=== PATIENT | male | born 1955 | race Caucasian/White ===

== ENCOUNTER 2019-02-21 15:37 | Inpatient (IN) ==
[2019-02-21] MEDS ORDERED: 0.9 % Sodium Chloride 1,000 ML IVC ONE ×2 (15:50→17:26)
[2019-02-21] MEDS ORDERED: Ondansetron 4 MG/2 ML VIAL IVP ONE (15:50)
[2019-02-21] MEDS ORDERED: *HR* HYDROmorphone (PF) 1 MG/ML SYRINGE IVP ONE (16:15)
[2019-02-21] MEDS ORDERED: Piperacillin/Tazobactam 3.375 GM in Water for inj. (sterile) 20 ML IVP ONE (17:26)
[2019-02-21] MEDS ORDERED: *HR* Metoprolol 5 MG/5 ML VIAL IVP ONE (18:15)
[2019-02-21] MEDS ORDERED: Naloxone 0.4 MG/ML INJ IVP PRN (18:43)
[2019-02-21] MEDS ORDERED: D5% in Water 1,000 ML IVC PRN (19:33)
[2019-02-21] MEDS ORDERED: Dextrose Gel 15 GM/37.5 ML TUBE PO PRN ×2 (19:33)
[2019-02-21] MEDS ORDERED: *HR* Dextrose 50 % in Water (Syg) 50 ML SYRINGE IVP PRN (19:33)
[2019-02-21] MEDS ORDERED: 0.9 % Sodium Chloride 1,000 ML IVC SCH (21:45)
[2019-02-22] MEDS: MetroNIDAZOLE 500 MG/100 ML 500 MG/100 ML BAG IVPB SCH ×5 (00:08→23:58)
[2019-02-22] MEDS: Insulin LISPRO 300 UNITS/3 ML VIAL SQ SCH ×4 (00:09→17:40)
[2019-02-22] MEDS ORDERED: Perflutren Lipid Microsphere 1.3 ML in 0.9 % Sodium Chloride 8.7 ML IVP ONE (07:09)
[2019-02-22] MEDS: cefTRIAXone 1,000 MG in Water for inj. (sterile) 10 ML IVP SCH (09:33)
[2019-02-22 11:27] LABS: Basophils # 0.1 K/mcL (0.0-0.2); Basophils % 0.4 %; Eosinophils # 0.3 K/mcL (0.0-0.6); Eosinophils % 1.4 %; Hematocrit 38.6 % (37.5-50.1); Immature Granulocytes % 0.7 % (0-4); Lymphocytes # 1.1 K/mcL (0.6-4.6); Lymphocytes % 6.1 %; Mean Corpuscular HGB Conc 31.1 g/dL (31.6-35.5); Mean Corpuscular Hemoglobin 28.9 pg (28.0-33.3); Mean Platelet Volume 9.9 fL (9.4-12.4); Monocytes # 1.4 K/mcL (0.0-1.3); Platelet Count 204 K/mcL (140-400); Red Blood Count 4.15 M/mcL (4.19-5.50); Red Cell Distribution Width 14.5 % (11.5-14.5); Segmented Neutrophils % 83.4 %
[2019-02-22 11:33] LABS: INR 1.7; Prothrombin Time 19.3 Seconds (9.4-12.1)
[2019-02-22 11:48] LABS: Albumin 3.6 g/dL (3.5-5.7); Albumin/Globulin Ratio 1.1 (1.1-2.2); Calcium 8.3 mg/dL (8.6-10.3); Chol/HDL Ratio 4.2 (0-4.9); Globulin 3.3 g/dL (2.4-3.5); Magnesium 2.1 mg/dL (1.6-2.6); Potassium 4.3 mEq/L (3.5-5.1); Total Protein 6.9 g/dL (6.4-8.9)
[2019-02-22 12:00] LABS: Thyroid Stimulating Hormone 1.313 mcIU/mL (0.340-5.600)
[2019-02-22] MEDS ORDERED: Regadenoson 0.4 MG/5 ML SYRINGE IVP ONE (13:12)
[2019-02-22] MEDS: 0.9 % Sodium Chloride 1,000 ML IVC SCH (16:00)
[2019-02-23] MEDS: Insulin LISPRO 300 UNITS/3 ML VIAL SQ SCH ×3 (00:06→20:59)
[2019-02-23] MEDS: 0.9 % Sodium Chloride 1,000 ML IVC SCH ×2 (00:08→16:59)
[2019-02-23] MEDS: MetroNIDAZOLE 500 MG/100 ML 500 MG/100 ML BAG IVPB SCH ×2 (05:46→17:02)
[2019-02-23 06:40] LABS: Basophils # 0.1 K/mcL (0.0-0.2); Basophils % 0.4 %; Eosinophils # 0.5 K/mcL (0.0-0.6); Hemoglobin 12.5 g/dL (12.9-16.9); Immature Granulocytes % 0.6 % (0-4); Lymphocytes # 0.9 K/mcL (0.6-4.6); Lymphocytes % 5.7 %; Mean Corpuscular HGB Conc 32.1 g/dL (31.6-35.5); Mean Corpuscular Hemoglobin 29.9 pg (28.0-33.3); Mean Corpuscular Volume 93.3 fL (83.0-100.0); Mean Platelet Volume 9.5 fL (9.4-12.4); Monocytes # 1.1 K/mcL (0.0-1.3); Monocytes % 6.8 %; Neutrophils # 13.8 K/mcL (1.6-8.9); Platelet Count 217 K/mcL (140-400); Red Blood Count 4.18 M/mcL (4.19-5.50); Red Cell Distribution Width 14.4 % (11.5-14.5); Segmented Neutrophils % 83.5 %; White Blood Count 16.6 K/mcL (4.3-11.1)
[2019-02-23 06:49] LABS: INR 1.3; Prothrombin Time 15.2 Seconds (9.4-12.1)
[2019-02-23 07:00] LABS: Albumin 3.7 g/dL (3.5-5.7); Bilirubin,Total 0.8 mg/dL (0.3-1.0); Calcium 8.4 mg/dL (8.6-10.3); Globulin 3.8 g/dL (2.4-3.5); Potassium 4.2 mEq/L (3.5-5.1); Total Protein 7.5 g/dL (6.4-8.9)
[2019-02-23] MEDS ORDERED: *HR* HYDROcodone/Acet 5/325 mg TABLET PO PRN (07:33)
[2019-02-23] MEDS ORDERED: Lidocaine -MPF 4% 5 ML AMPUL ONE (07:38)
[2019-02-23] MEDS: cefTRIAXone 1,000 MG in Water for inj. (sterile) 10 ML IVP SCH (08:03)
[2019-02-23] MEDS ORDERED: *HR* Midazolam HCl 2 MG/2 ML VIAL ONE (09:11)
[2019-02-23] MEDS ORDERED: *HR* Propofol 200 MG/20 ML VIAL IVP ONE (09:11)
[2019-02-23] MEDS ORDERED: Dexamethasone 4 MG/ML VIAL ONE (09:11)
[2019-02-23] MEDS ORDERED: *HR* FentaNYL (PF) 100 MCG/2 ML VIAL ONE (09:11)
[2019-02-23] MEDS ORDERED: Lidocaine -MPF 2% 2 ML VIAL ONE (09:11)
[2019-02-23] MEDS ORDERED: *HR* Succinylcholine 200 MG/10 ML VIAL IVP ONE (09:11)
[2019-02-23] MEDS ORDERED: Ondansetron 4 MG/2 ML VIAL ONE (09:11)
[2019-02-23] MEDS ORDERED: *HR* Rocuronium Bromide 50 MG/5 ML VIAL ONE ×2 (09:12→10:16)
[2019-02-23] MEDS ORDERED: *HR* Phenylephrine 10 MG/ML VIAL ONE (10:18)
[2019-02-23] MEDS ORDERED: *HR* Vasopressin 20 UNIT/ML VIAL ONE (10:26)
[2019-02-23] MEDS: Morphine Sulfate 2 MG/ML SYRINGE IVP PRN ×5 (12:18→12:40)
[2019-02-23] MEDS ORDERED: Dextrose Gel 15 GM/37.5 ML TUBE PO PRN ×2 (12:57)
[2019-02-23] MEDS ORDERED: Naloxone 0.4 MG/ML INJ IVP PRN (12:57)
[2019-02-23] MEDS ORDERED: *HR* Dextrose 50 % in Water (Syg) 50 ML SYRINGE IVP PRN (12:57)
[2019-02-23] MEDS ORDERED: D5% in Water 1,000 ML IVC PRN ×2 (12:57→20:54)
[2019-02-23] MEDS ORDERED: Insulin LISPRO 300 UNITS/3 ML VIAL SQ SCH (18:00)
[2019-02-23] MEDS: *HR* OxyCODONE/APAP 5/325 TABLET PO PRN (21:09)
[2019-02-24] MEDS: 0.9 % Sodium Chloride 1,000 ML IVC SCH ×2 (00:05→18:10)
[2019-02-24] MEDS: MetroNIDAZOLE 500 MG/100 ML 500 MG/100 ML BAG IVPB SCH ×5 (00:06→20:20)
[2019-02-24 05:05] LABS: Basophils % 0.2 %; Hematocrit 39.1 % (37.5-50.1); Hemoglobin 12.2 g/dL (12.9-16.9); Immature Granulocytes % 1.7 % (0-4); Lymphocytes # 0.6 K/mcL (0.6-4.6); Lymphocytes % 3.4 %; Mean Corpuscular HGB Conc 31.2 g/dL (31.6-35.5); Mean Corpuscular Hemoglobin 29.2 pg (28.0-33.3); Mean Corpuscular Volume 93.5 fL (83.0-100.0); Mean Platelet Volume 9.6 fL (9.4-12.4); Monocytes # 0.8 K/mcL (0.0-1.3); Monocytes % 4.6 %; Platelet Count 282 K/mcL (140-400); Red Blood Count 4.18 M/mcL (4.19-5.50); Red Cell Distribution Width 14.6 % (11.5-14.5); Segmented Neutrophils % 90.1 %; White Blood Count 16.6 K/mcL (4.3-11.1)
[2019-02-24 05:19] LABS: Calcium 8.2 mg/dL (8.6-10.3)
[2019-02-24] MEDS: cefTRIAXone 1,000 MG in Water for inj. (sterile) 10 ML IVP SCH (08:35)
[2019-02-24] MEDS: Insulin LISPRO 300 UNITS/3 ML VIAL SQ SCH ×5 (09:00→20:23)
[2019-02-24] MEDS: Insulin DETEMIR 100 UNIT/ML X5UNITS SQ SCH (09:02)
[2019-02-24 11:31] LABS: Sodium, Urine 15.2 mEq/L
[2019-02-24] MEDS: *HR* OxyCODONE/APAP 5/325 TABLET PO PRN (20:29)
[2019-02-25] MEDS: 0.9 % Sodium Chloride 1,000 ML IVC SCH ×2 (03:55)
[2019-02-25] MEDS: MetroNIDAZOLE 500 MG/100 ML 500 MG/100 ML BAG IVPB SCH (03:55)
[2019-02-25 04:15] LABS: Basophils % 0.2 %; Eosinophils # 0.1 K/mcL (0.0-0.6); Eosinophils % 0.3 %; Hematocrit 36.1 % (37.5-50.1); Hemoglobin 11.3 g/dL (12.9-16.9); Immature Granulocytes % 2.5 % (0-4); Lymphocytes # 0.9 K/mcL (0.6-4.6); Lymphocytes % 5.9 %; Mean Corpuscular HGB Conc 31.3 g/dL (31.6-35.5); Mean Corpuscular Hemoglobin 29.3 pg (28.0-33.3); Mean Corpuscular Volume 93.5 fL (83.0-100.0); Mean Platelet Volume 9.5 fL (9.4-12.4); Monocytes % 6.3 %; Neutrophils # 12.8 K/mcL (1.6-8.9); Platelet Count 291 K/mcL (140-400); Red Blood Count 3.86 M/mcL (4.19-5.50); Red Cell Distribution Width 14.4 % (11.5-14.5); Segmented Neutrophils % 84.8 %; White Blood Count 15.1 K/mcL (4.3-11.1)
[2019-02-25 04:32] LABS: Potassium 4.5 mEq/L (3.5-5.1)
[2019-02-25] MEDS: cefTRIAXone 1,000 MG in Water for inj. (sterile) 10 ML IVP SCH (09:35)
[2019-02-25] MEDS: Insulin DETEMIR 100 UNIT/ML X5UNITS SQ SCH (09:39)
[2019-02-25] MEDS: Insulin LISPRO 300 UNITS/3 ML VIAL SQ SCH (09:40)
[2019-02-25 11:06] VITALS: BP 101/59
[2019-02-25] MEDS ORDERED: Leptospermum Honey Gel 44 ML TUBE TP SCH (11:35)
[2019-02-25] MEDS ORDERED: *HR* Rivaroxaban 15 MG TABLET PO SCH (17:00)
== END 2019-02-25 12:32 | disposition home or self-care (01) | DRG 853 ==
LOC: 3ANU 15:37 → EMEROOARM 15:37 → SUATTDRO 18:26 → 3ANU 19:41
PROVIDERS: ADMIT Internal Medicine; ATTEND Internal Medicine

== ENCOUNTER 2019-04-08 14:54 | Inpatient (IN) ==
[2019-04-08] MEDS ORDERED: Isovue-370 500 ML BOTTLE IVP ONE (17:01)
[2019-04-08] MEDS ORDERED: Piperacillin/Tazobactam 3.375 GM in Water for inj. (sterile) 20 ML IVP ONE (17:02)
[2019-04-08] MEDS ORDERED: 0.9 % Sodium Chloride 1,000 ML IVC ONE ×5 (17:03→21:05)
[2019-04-08] MEDS ORDERED: *HR* HYDROmorphone (PF) 1 MG/ML SYRINGE IVP ONE (17:04)
[2019-04-08] MEDS ORDERED: Ketorolac 15 MG/ML VIAL IVP ONE (17:04)
[2019-04-08 17:40] LABS: Basophils # 0.1 K/mcL (0.0-0.2); Basophils % 0.3 %; Eosinophils % 0.1 %; Hematocrit 38.6 % (37.5-50.1); Hemoglobin 12.7 g/dL (12.9-16.9); Immature Granulocytes % 1.6 % (0-4); Lymphocytes # 0.7 K/mcL (0.6-4.6); Lymphocytes % 3.1 %; Mean Corpuscular HGB Conc 32.9 g/dL (31.6-35.5); Mean Corpuscular Hemoglobin 29.1 pg (28.0-33.3); Mean Corpuscular Volume 88.5 fL (83.0-100.0); Mean Platelet Volume 10.1 fL (9.4-12.4); Monocytes # 1.1 K/mcL (0.0-1.3); Monocytes % 4.7 %; Neutrophils # 21.2 K/mcL (1.6-8.9); Platelet Count 274 K/mcL (140-400); Red Blood Count 4.36 M/mcL (4.19-5.50); Red Cell Distribution Width 15.9 % (11.5-14.5); Segmented Neutrophils % 90.2 %; White Blood Count 23.5 K/mcL (4.3-11.1)
[2019-04-08 17:41] LABS: INR 1.5; Prothrombin Time 17.5 Seconds (9.4-12.1)
[2019-04-08 17:44] LABS: Activated Partial Thrombo Time 31.1 Seconds (26.0-36.0)
[2019-04-08 18:00] LABS: Albumin 3.4 g/dL (3.5-5.7); Albumin/Globulin Ratio 0.8 (1.1-2.2); Bilirubin,Direct 0.3 mg/dL (0.0-0.2); Bilirubin,Indirect 0.6 mg/dL (0.0-1.0); Bilirubin,Total 0.9 mg/dL (0.3-1.0); Calcium 8.7 mg/dL (8.6-10.3); Globulin 4.2 g/dL (2.4-3.5); Magnesium 2.1 mg/dL (1.6-2.6); Phosphorous 2.6 mg/dL (2.7-4.5); Potassium 4.4 mEq/L (3.5-5.1); Total Protein 7.6 g/dL (6.4-8.9); Troponin I 0.03 ng/mL (< 0.04)
[2019-04-08] MEDS ORDERED: Ondansetron 4 MG/2 ML VIAL IVP ONE ×2 (18:00→20:30)
[2019-04-08 18:13] LABS: Thyroid Stimulating Hormone 1.138 mcIU/mL (0.340-5.600)
[2019-04-08] MEDS ORDERED: Clindamycin 900 MG/50 ML 900 MG/50 ML IV.SOLN IVPB ONE (18:57)
[2019-04-08 19:17] LABS: Bilirubin,Urine Negative (Negative); Blood,Urine Negative (Negative); Clarity,Urine Cloudy (Clear); Color,Urine Dark Yellow (Yellow); Glucose,Urine (UA) Normal (Normal); Ketones,Urine Negative (Negative); Leukocyte Esterase,Urine Negative (Negative); Nitrite,Urine Negative (Negative); Protein,Urine 100 mg/dL (Neg-Trace); Specific Gravity,Urine 1.027 (1.010-1.025); Urobilinogen,Urine Normal (Normal)
[2019-04-08 19:18] LABS: RBC,Urine 0-3 per hpf (0-3); Squamous Epithelial Cell,Urine Many per lpf (None-Few)
[2019-04-08 19:34] LABS: Amorphous Sediment,Urine Few (Few); Bacteria,Urine Few per hpf (None-Few)
[2019-04-08 19:35] LABS: Hyaline Casts,Urine Few per lpf (None-Few)
[2019-04-08] MEDS ORDERED: *HR* HYDROmorphone (PF) 1 MG/ML SYRINGE IVP PRN (20:30)
[2019-04-08] MEDS ORDERED: *HR* OxyCODONE Immed Rel 5 MG TABLET PO PRN (20:30)
[2019-04-08] MEDS ORDERED: *HR* Promethazine 25 MG/ML VIAL IVP PRN (20:30)
[2019-04-08] MEDS ORDERED: *HR* Propofol 200 MG/20 ML VIAL IVP ONE (20:47)
[2019-04-08] MEDS ORDERED: *HR* FentaNYL (PF) 100 MCG/2 ML VIAL ONE (20:47)
[2019-04-08] MEDS ORDERED: Dexamethasone 4 MG/ML VIAL ONE (20:50)
[2019-04-08] MEDS ORDERED: Lidocaine -MPF 2% 2 ML VIAL ONE (20:50)
[2019-04-08] MEDS ORDERED: *HR* Succinylcholine 200 MG/10 ML VIAL IVP ONE (20:50)
[2019-04-08] MEDS ORDERED: Ondansetron 4 MG/2 ML VIAL ONE (20:50)
[2019-04-08] MEDS ORDERED: *HR* Metoprolol 5 MG/5 ML VIAL IVP ONE (21:44)
[2019-04-08] MEDS ORDERED: *HR* PHENYLEPHRINE 1,000 MCG/10 ML SYRINGE IVP ONE (21:56)
[2019-04-08] MEDS ORDERED: *HR* Rocuronium Bromide 50 MG/5 ML VIAL ONE (23:10)
[2019-04-08] MEDS ORDERED: *HR* OxyCODONE/APAP 5/325 TABLET PO PRN (23:29)
[2019-04-09] MEDS: Acetaminophen IV 1,000 MG/100 ML INFUS..BTL IVPB SCH ×5 (00:19→23:44)
[2019-04-09] MEDS: Clindamycin 600 MG/50 ML 600 MG/50 ML IV.SOLN IVPB SCH ×2 (00:19→08:13)
[2019-04-09 01:09] LABS: Basophils % 0.1 %; Hematocrit 31.3 % (37.5-50.1); Hemoglobin 10.2 g/dL (12.9-16.9); Lymphocytes # 0.4 K/mcL (0.6-4.6); Mean Corpuscular HGB Conc 32.6 g/dL (31.6-35.5); Mean Corpuscular Hemoglobin 29.5 pg (28.0-33.3); Mean Corpuscular Volume 90.5 fL (83.0-100.0); Mean Platelet Volume 10.1 fL (9.4-12.4); Monocytes # 1.3 K/mcL (0.0-1.3); Monocytes % 6.1 %; Neutrophils # 18.8 K/mcL (1.6-8.9); Platelet Count 202 K/mcL (140-400); Red Blood Count 3.46 M/mcL (4.19-5.50); Red Cell Distribution Width 16.1 % (11.5-14.5); Segmented Neutrophils % 89.8 %
[2019-04-09 01:24] LABS: Calcium 7.4 mg/dL (8.6-10.3); Potassium 4.8 mEq/L (3.5-5.1)
[2019-04-09] MEDS ORDERED: 0.9 % Sodium Chloride 1,000 ML IVC ONE (02:15)
[2019-04-09] MEDS ORDERED: 0.9 % Sodium Chloride 1,000 ML ONE (02:29)
[2019-04-09] MEDS ORDERED: Calcium Gluconate 1gm/50mL 1 GM/50 ML BAG IVPB ONE (03:17)
[2019-04-09] MEDS ORDERED: Cefepime HCl 1,000 MG in 0.9 % Sodium Chloride Mini Bag 100 ML IVPB SCH (06:00)
[2019-04-09] MEDS: *HR* Heparin 5,000 UNIT/ML VIAL SQ SCH ×3 (06:01→19:59)
[2019-04-09] MEDS ORDERED: MetroNIDAZOLE 500 MG/100 ML 500 MG/100 ML BAG IVPB SCH ×2 (08:00→10:00)
[2019-04-09] MEDS ORDERED: carvediloL 6.25 MG TABLET PO SCH (08:00)
[2019-04-09] MEDS: Insulin LISPRO 300 UNITS/3 ML VIAL SQ SCH ×3 (08:12→17:45)
[2019-04-09] MEDS ORDERED: Dextrose Gel 15 GM/37.5 ML TUBE PO PRN ×2 (09:52)
[2019-04-09] MEDS ORDERED: D5% in Water 1,000 ML IVC PRN (09:52)
[2019-04-09] MEDS ORDERED: *HR* Dextrose 50 % in Water (Syg) 50 ML SYRINGE IVP PRN (09:52)
[2019-04-09] MEDS: MetroNIDAZOLE 500 MG/100 ML 500 MG/100 ML BAG IVPB SCH ×3 (11:08→19:59)
[2019-04-09] MEDS: Gentamicin Oint 15 GM TUBE TP SCH (13:42)
[2019-04-09] MEDS: Desitin (Zinc Oxide) 56 GM TUBE TP SCH (13:42)
[2019-04-09] MEDS ORDERED: 0.9 % Sodium Chloride 1,000 ML IVC SCH (15:45)
[2019-04-09] MEDS: Clindamycin 900 MG/50 ML 900 MG/50 ML IV.SOLN IVPB SCH ×2 (17:43→23:44)
[2019-04-09] MEDS: Cefepime HCl 2,000 MG in Water for inj. (sterile) 20 ML IVP SCH (17:44)
[2019-04-09] MEDS ORDERED: Cefepime HCl 1,000 MG in Water for inj. (sterile) 20 ML IVP SCH (18:00)
[2019-04-09 19:04] LABS: Basophils % 0.2 %; Eosinophils % 0.1 %; Hematocrit 29.9 % (37.5-50.1); Hemoglobin 9.7 g/dL (12.9-16.9); Immature Granulocytes % 1.6 % (0-4); Lymphocytes # 0.8 K/mcL (0.6-4.6); Mean Corpuscular HGB Conc 32.4 g/dL (31.6-35.5); Mean Corpuscular Hemoglobin 29.3 pg (28.0-33.3); Mean Corpuscular Volume 90.3 fL (83.0-100.0); Mean Platelet Volume 10.5 fL (9.4-12.4); Monocytes % 5.2 %; Neutrophils # 17.7 K/mcL (1.6-8.9); Platelet Count 219 K/mcL (140-400); Red Blood Count 3.31 M/mcL (4.19-5.50); Red Cell Distribution Width 16.1 % (11.5-14.5); Segmented Neutrophils % 88.9 %; White Blood Count 19.9 K/mcL (4.3-11.1)
[2019-04-09 19:09] LABS: INR 1.4; Prothrombin Time 16.1 Seconds (9.4-12.1)
[2019-04-09 19:12] LABS: Activated Partial Thrombo Time 28.2 Seconds (26.0-36.0)
[2019-04-09] MEDS ORDERED: Insulin DETEMIR 100 UNIT/ML X5UNITS SQ SCH (21:00)
[2019-04-10 03:53] LABS: Basophils % 0.2 %; Eosinophils % 0.2 %; Hematocrit 28.2 % (37.5-50.1); Immature Granulocytes % 1.3 % (0-4); Lymphocytes # 0.7 K/mcL (0.6-4.6); Mean Corpuscular HGB Conc 31.9 g/dL (31.6-35.5); Mean Corpuscular Hemoglobin 29.5 pg (28.0-33.3); Mean Corpuscular Volume 92.5 fL (83.0-100.0); Mean Platelet Volume 10.3 fL (9.4-12.4); Monocytes # 0.9 K/mcL (0.0-1.3); Monocytes % 4.8 %; Neutrophils # 16.2 K/mcL (1.6-8.9); Platelet Count 209 K/mcL (140-400); Red Blood Count 3.05 M/mcL (4.19-5.50); Segmented Neutrophils % 89.5 %; White Blood Count 18.1 K/mcL (4.3-11.1)
[2019-04-10] MEDS: Cefepime HCl 2,000 MG in Water for inj. (sterile) 20 ML IVP SCH ×2 (04:10→17:02)
[2019-04-10] MEDS: MetroNIDAZOLE 500 MG/100 ML 500 MG/100 ML BAG IVPB SCH ×4 (04:11→21:30)
[2019-04-10 04:17] LABS: Calcium 7.7 mg/dL (8.6-10.3); Potassium 4.5 mEq/L (3.5-5.1)
[2019-04-10 04:18] LABS: Albumin 2.6 g/dL (3.5-5.7); Albumin/Globulin Ratio 0.8 (1.1-2.2); Bilirubin,Total 0.5 mg/dL (0.3-1.0); Calcium 7.6 mg/dL (8.6-10.3); Globulin 3.4 g/dL (2.4-3.5); Magnesium 2.1 mg/dL (1.6-2.6); Potassium 4.6 mEq/L (3.5-5.1)
[2019-04-10] MEDS: Acetaminophen IV 1,000 MG/100 ML INFUS..BTL IVPB SCH (05:39)
[2019-04-10] MEDS: *HR* Heparin 5,000 UNIT/ML VIAL SQ SCH ×3 (05:39→21:29)
[2019-04-10] MEDS: Psyllium 1 PACKET POWD.PACK PO SCH ×4 (05:40→22:12)
[2019-04-10] MEDS: Desitin (Zinc Oxide) 56 GM TUBE TP SCH (09:16)
[2019-04-10] MEDS: Insulin LISPRO 300 UNITS/3 ML VIAL SQ SCH ×3 (09:16→19:47)
[2019-04-10] MEDS: Gentamicin Oint 15 GM TUBE TP SCH (09:16)
[2019-04-10] MEDS: Clindamycin 900 MG/50 ML 900 MG/50 ML IV.SOLN IVPB SCH ×3 (09:16→23:38)
[2019-04-10] MEDS ORDERED: Acetaminophen 325 MG TABLET PO PRN ×2 (11:23→20:09)
[2019-04-10] MEDS ORDERED: Dextrose Gel 15 GM/37.5 ML TUBE PO PRN ×4 (20:09)
[2019-04-10] MEDS ORDERED: *HR* Dextrose 50 % in Water (Syg) 50 ML SYRINGE IVP PRN (20:09)
[2019-04-10] MEDS ORDERED: *HR* OxyCODONE/APAP 5/325 TABLET PO PRN (20:09)
[2019-04-10] MEDS ORDERED: D5% in Water 1,000 ML IVC PRN (20:09)
[2019-04-10 21:03] LABS: Estimated Average Glucose 171 mg/dl
[2019-04-10] MEDS: Insulin DETEMIR 100 UNIT/ML X5UNITS SQ SCH (21:30)
[2019-04-11] MEDS: MetroNIDAZOLE 500 MG/100 ML 500 MG/100 ML BAG IVPB SCH ×3 (04:24→10:41)
[2019-04-11] MEDS: Cefepime HCl 2,000 MG in Water for inj. (sterile) 20 ML IVP SCH ×2 (04:24→07:20)
[2019-04-11 04:28] LABS: Basophils # 0.1 K/mcL (0.0-0.2); Basophils % 0.2 %; Eosinophils # 0.3 K/mcL (0.0-0.6); Eosinophils % 1.4 %; Hemoglobin 10.4 g/dL (12.9-16.9); Immature Granulocytes % 0.8 % (0-4); Lymphocytes # 0.9 K/mcL (0.6-4.6); Lymphocytes % 3.7 %; Mean Corpuscular HGB Conc 32.5 g/dL (31.6-35.5); Mean Corpuscular Hemoglobin 29.1 pg (28.0-33.3); Mean Corpuscular Volume 89.6 fL (83.0-100.0); Mean Platelet Volume 10.1 fL (9.4-12.4); Monocytes % 4.2 %; Neutrophils # 20.5 K/mcL (1.6-8.9); Nucleated Red Blood Cells 0.1 /100 WBC (0); Platelet Count 307 K/mcL (140-400); Red Blood Count 3.57 M/mcL (4.19-5.50); Red Cell Distribution Width 16.1 % (11.5-14.5); Segmented Neutrophils % 89.7 %; White Blood Count 22.9 K/mcL (4.3-11.1)
[2019-04-11 04:46] LABS: Calcium 7.9 mg/dL (8.6-10.3); Potassium 4.2 mEq/L (3.5-5.1)
[2019-04-11] MEDS: *HR* Heparin 5,000 UNIT/ML VIAL SQ SCH (06:08)
[2019-04-11] MEDS: Clindamycin 900 MG/50 ML 900 MG/50 ML IV.SOLN IVPB SCH ×2 (07:32)
[2019-04-11] MEDS: Desitin (Zinc Oxide) 56 GM TUBE TP SCH (08:15)
[2019-04-11] MEDS: Gentamicin Oint 15 GM TUBE TP SCH (08:15)
[2019-04-11] MEDS: Insulin LISPRO 300 UNITS/3 ML VIAL SQ SCH ×3 (08:16→17:07)
[2019-04-11] MEDS ORDERED: *HR* Metoprolol 5 MG/5 ML VIAL IVP ONE (09:00)
[2019-04-11] MEDS: Psyllium 1 PACKET POWD.PACK PO SCH ×3 (10:44→21:01)
[2019-04-11 11:27] LABS: Acinetobacter baumannii by PCR Not Detected (Not Detect); Candida albicans by PCR Not Detected (Not Detect); Candida glabrata by PCR Not Detected (Not Detect); Candida krusei by PCR Not Detected (Not Detect); Candida parapsilosis by PCR Not Detected (Not Detect); Candida tropicalis by PCR Not Detected (Not Detect); Enterobacter cloacae Cmplx PCR Not Detected (Not Detect); Enterobacteriaceae by PCR Not Detected (Not Detect); Enterococcus by PCR Not Detected (Not Detect); Escherichia coli by PCR Not Detected (Not Detect); Klebsiella oxytoca by PCR Not Detected (Not Detect); Klebsiella pneumoniae by PCR Not Detected (Not Detect); Proteus by PCR Not Detected (Not Detect); Pseudomonas aeruginosa by PCR Not Detected (Not Detect); Serratia marcescens by PCR Not Detected (Not Detect); Staphylococcus aureus by PCR Not Detected (Not Detect); Staphylococcus by PCR Not Detected (Not Detect); Streptococcus agalactiae(B)PCR Not Detected (Not Detect); Streptococcus by PCR Not Detected (Not Detect); Streptococcus pneumoniae PCR Not Detected (Not Detect); Streptococcus pyogenes (A) PCR Not Detected (Not Detect)
[2019-04-11] MEDS ORDERED: Ondansetron 4 MG/2 ML VIAL IVP PRN (11:56)
[2019-04-11] MEDS ORDERED: Vancomycin 0 MG in 0.9 % Sodium Chloride 250 ML IVPB SCH (12:00)
[2019-04-11] MEDS: Piperacillin/Tazobactam 3.375 GM in 0.9 % Sodium Chloride Mini Bag 100 ML IVPB SCH ×3 (12:03→23:59)
[2019-04-11] MEDS: Cholestyramine 4 GM POWD.PACK PO SCH (12:42)
[2019-04-11] MEDS: *HR* Rivaroxaban 15 MG TABLET PO SCH (17:00)
[2019-04-11] MEDS: Insulin DETEMIR 100 UNIT/ML X5UNITS SQ SCH (21:00)
[2019-04-11] MEDS: Famotidine 20 MG TABLET PO SCH (21:03)
[2019-04-12 03:32] LABS: Basophils # 0.1 K/mcL (0.0-0.2); Basophils % 0.4 %; Eosinophils # 0.6 K/mcL (0.0-0.6); Eosinophils % 2.7 %; Hematocrit 29.2 % (37.5-50.1); Hemoglobin 9.3 g/dL (12.9-16.9); Immature Granulocytes % 1.3 % (0-4); Lymphocytes # 1.2 K/mcL (0.6-4.6); Lymphocytes % 5.2 %; Mean Corpuscular HGB Conc 31.8 g/dL (31.6-35.5); Mean Corpuscular Hemoglobin 29.2 pg (28.0-33.3); Mean Corpuscular Volume 91.5 fL (83.0-100.0); Mean Platelet Volume 9.6 fL (9.4-12.4); Monocytes # 1.2 K/mcL (0.0-1.3); Monocytes % 5.3 %; Platelet Count 281 K/mcL (140-400); Red Blood Count 3.19 M/mcL (4.19-5.50); Red Cell Distribution Width 16.1 % (11.5-14.5); Segmented Neutrophils % 85.1 %; White Blood Count 22.3 K/mcL (4.3-11.1)
[2019-04-12 03:50] LABS: Calcium 8.1 mg/dL (8.6-10.3); Potassium 4.3 mEq/L (3.5-5.1)
[2019-04-12] MEDS: Cholestyramine 4 GM POWD.PACK PO SCH (06:45)
[2019-04-12] MEDS: Piperacillin/Tazobactam 3.375 GM in 0.9 % Sodium Chloride Mini Bag 100 ML IVPB SCH ×3 (07:54→23:17)
[2019-04-12] MEDS: Famotidine 20 MG TABLET PO SCH ×2 (07:56→16:22)
[2019-04-12] MEDS: Psyllium 1 PACKET POWD.PACK PO SCH ×3 (07:58→20:33)
[2019-04-12] MEDS: Insulin LISPRO 300 UNITS/3 ML VIAL SQ SCH ×3 (10:11→16:21)
[2019-04-12] MEDS: Gentamicin Oint 15 GM TUBE TP SCH (12:28)
[2019-04-12] MEDS: Desitin (Zinc Oxide) 56 GM TUBE TP SCH (12:28)
[2019-04-12] MEDS: *HR* Rivaroxaban 15 MG TABLET PO SCH (16:22)
[2019-04-12] MEDS ORDERED: Insulin DETEMIR 100 UNIT/ML X5UNITS SQ SCH (21:00)
[2019-04-13 02:38] LABS: Basophils # 0.1 K/mcL (0.0-0.2); Basophils % 0.5 %; Eosinophils # 0.7 K/mcL (0.0-0.6); Eosinophils % 3.2 %; Hematocrit 28.6 % (37.5-50.1); Hemoglobin 9.4 g/dL (12.9-16.9); Immature Granulocytes % 3.7 % (0-4); Lymphocytes # 1.1 K/mcL (0.6-4.6); Lymphocytes % 5.4 %; Mean Corpuscular HGB Conc 32.9 g/dL (31.6-35.5); Mean Corpuscular Hemoglobin 29.3 pg (28.0-33.3); Mean Corpuscular Volume 89.1 fL (83.0-100.0); Mean Platelet Volume 9.4 fL (9.4-12.4); Monocytes # 1.3 K/mcL (0.0-1.3); Monocytes % 6.2 %; Neutrophils # 16.9 K/mcL (1.6-8.9); Platelet Count 309 K/mcL (140-400); Red Blood Count 3.21 M/mcL (4.19-5.50); Red Cell Distribution Width 16.4 % (11.5-14.5); White Blood Count 20.9 K/mcL (4.3-11.1)
[2019-04-13 02:57] LABS: Calcium 8.2 mg/dL (8.6-10.3); Potassium 4.2 mEq/L (3.5-5.1)
[2019-04-13] MEDS: Cholestyramine 4 GM POWD.PACK PO SCH (06:12)
[2019-04-13] MEDS: Insulin LISPRO 300 UNITS/3 ML VIAL SQ SCH ×4 (07:40→18:04)
[2019-04-13] MEDS: Psyllium 1 PACKET POWD.PACK PO SCH ×2 (07:59→15:35)
[2019-04-13] MEDS: Piperacillin/Tazobactam 3.375 GM in 0.9 % Sodium Chloride Mini Bag 100 ML IVPB SCH ×3 (08:01→23:26)
[2019-04-13] MEDS: Famotidine 20 MG TABLET PO SCH ×2 (08:01→16:13)
[2019-04-13] MEDS: Gentamicin Oint 15 GM TUBE TP SCH (08:16)
[2019-04-13] MEDS: Desitin (Zinc Oxide) 56 GM TUBE TP SCH (08:16)
[2019-04-13] MEDS: *HR* Rivaroxaban 15 MG TABLET PO SCH (16:13)
[2019-04-13] MEDS ORDERED: *HR* Dextrose 50 % in Water (Syg) 50 ML SYRINGE IVP PRN (16:19)
[2019-04-13] MEDS ORDERED: D5% in Water 1,000 ML IVC PRN (16:19)
[2019-04-13] MEDS ORDERED: Dextrose Gel 15 GM/37.5 ML TUBE PO PRN ×2 (16:19)
[2019-04-13] MEDS ORDERED: Vancomycin 1 EACH in 0.9 % Sodium Chloride 250 ML IVPB SCH (17:00)
[2019-04-13] MEDS: Eucerin Cream 57 GM TUBE TP PRN (18:39)
[2019-04-13] MEDS: Lactobacillus 1 EACH CAP.SPRINK PO SCH (20:24)
[2019-04-13] MEDS ORDERED: Insulin DETEMIR 100 UNIT/ML X5UNITS SQ SCH (21:00)
[2019-04-14 02:50] LABS: Basophils % 0.8 %; Eosinophils % 5.5 %; Hematocrit 28.6 % (37.5-50.1); Hemoglobin 9.4 g/dL (12.9-16.9); Immature Granulocytes % 6.8 % (0-4); Lymphocytes # 1.1 K/mcL (0.6-4.6); Lymphocytes % 5.9 %; Mean Corpuscular HGB Conc 32.9 g/dL (31.6-35.5); Mean Corpuscular Hemoglobin 29.3 pg (28.0-33.3); Mean Corpuscular Volume 89.1 fL (83.0-100.0); Mean Platelet Volume 9.2 fL (9.4-12.4); Monocytes # 1.4 K/mcL (0.0-1.3); Monocytes % 7.7 %; Neutrophils # 13.4 K/mcL (1.6-8.9); Platelet Count 336 K/mcL (140-400); Red Blood Count 3.21 M/mcL (4.19-5.50); Red Cell Distribution Width 16.7 % (11.5-14.5); Segmented Neutrophils % 73.3 %; White Blood Count 18.3 K/mcL (4.3-11.1)
[2019-04-14 03:10] LABS: % Iron Saturation 15 % (20-55); Calcium 8.2 mg/dL (8.6-10.3); Iron 31 mcg/dL (65-175); Potassium 4.2 mEq/L (3.5-5.1); Transferrin 152 mg/dL (203-362)
[2019-04-14 03:27] LABS: Ferritin 167 ng/mL (20-250)
[2019-04-14 03:33] LABS: Folate 13.7 ng/mL (3.0-16.0)
[2019-04-14 03:55] LABS: Basophils # 0.2 K/mcL (0.0-0.2)
[2019-04-14 04:41] LABS: Reactive Lymphocytes Present (Not Present)
[2019-04-14 04:42] LABS: Platelet Estimate Normal (Normal)
[2019-04-14] MEDS: Cholestyramine 4 GM POWD.PACK PO SCH (06:03)
[2019-04-14] MEDS: Insulin LISPRO 300 UNITS/3 ML VIAL SQ SCH ×3 (08:05→17:51)
[2019-04-14] MEDS: Piperacillin/Tazobactam 3.375 GM in 0.9 % Sodium Chloride Mini Bag 100 ML IVPB SCH ×3 (08:08→23:49)
[2019-04-14] MEDS: Lactobacillus 1 EACH CAP.SPRINK PO SCH ×2 (08:10→20:17)
[2019-04-14] MEDS: Famotidine 20 MG TABLET PO SCH ×2 (08:11→15:50)
[2019-04-14] MEDS: Gentamicin Oint 15 GM TUBE TP SCH (08:21)
[2019-04-14] MEDS: Desitin (Zinc Oxide) 56 GM TUBE TP SCH (08:22)
[2019-04-14] MEDS: Eucerin Cream 57 GM TUBE TP PRN (08:22)
[2019-04-14] MEDS: *HR* Rivaroxaban 15 MG TABLET PO SCH (17:58)
[2019-04-14] MEDS ORDERED: Insulin DETEMIR 100 UNIT/ML X5UNITS SQ SCH (21:00)
[2019-04-15 04:04] LABS: Hematocrit 30.5 % (37.5-50.1); Hemoglobin 9.9 g/dL (12.9-16.9); Mean Corpuscular HGB Conc 32.5 g/dL (31.6-35.5); Mean Corpuscular Hemoglobin 28.9 pg (28.0-33.3); Mean Corpuscular Volume 88.9 fL (83.0-100.0); Mean Platelet Volume 8.8 fL (9.4-12.4); Platelet Count 348 K/mcL (140-400); Red Blood Count 3.43 M/mcL (4.19-5.50); Red Cell Distribution Width 16.9 % (11.5-14.5); White Blood Count 18.9 K/mcL (4.3-11.1)
[2019-04-15 04:23] LABS: Calcium 8.4 mg/dL (8.6-10.3); Potassium 4.5 mEq/L (3.5-5.1)
[2019-04-15 04:56] LABS: Eosinophils # 0.4 K/mcL (0.0-0.6); Lymphocytes # 1.1 K/mcL (0.6-4.6); Neutrophils # 17.4 K/mcL (1.6-8.9)
[2019-04-15 04:57] LABS: Anisocytosis 1+ (Not Present); Hypochromasia Present (Not Present); Platelet Estimate Normal (Normal)
[2019-04-15] MEDS ORDERED: Aminoglycoside Consult 1 EACH MC ONE (08:27)
[2019-04-15] MEDS: Lactobacillus 1 EACH CAP.SPRINK PO SCH ×2 (09:19→20:30)
[2019-04-15] MEDS: Famotidine 20 MG TABLET PO SCH ×2 (09:19→19:04)
[2019-04-15] MEDS: Insulin LISPRO 300 UNITS/3 ML VIAL SQ SCH (09:20)
[2019-04-15] MEDS: Piperacillin/Tazobactam 3.375 GM in 0.9 % Sodium Chloride Mini Bag 100 ML IVPB SCH (09:20)
[2019-04-15] MEDS: Desitin (Zinc Oxide) 56 GM TUBE TP SCH (09:21)
[2019-04-15] MEDS: Gentamicin Oint 15 GM TUBE TP SCH (09:21)
[2019-04-15] MEDS ORDERED: metroNIDAZOLE 500 MG TABLET PO SCH (15:00)
[2019-04-15] MEDS ORDERED: Piperacillin/Tazobactam 3.375 GM in 0.9 % Sodium Chloride Mini Bag 100 ML IVPB SCH (16:00)
[2019-04-15] MEDS: *HR* Rivaroxaban 15 MG TABLET PO SCH (19:04)
[2019-04-15] MEDS: Metoprolol XL (24 HR) Succ 50 MG TAB.ER.24H PO SCH (20:30)
[2019-04-15] MEDS ORDERED: Insulin DETEMIR 100 UNIT/ML X5UNITS SQ SCH (21:00)
[2019-04-16] MEDS: Piperacillin/Tazobactam 3.375 GM in 0.9 % Sodium Chloride Mini Bag 100 ML IVPB SCH ×4 (02:50→15:42)
[2019-04-16 03:40] LABS: Basophils % 0.5 %; Lymphocytes % 3.8 %; Nucleated Red Blood Cells 0.1 /100 WBC (0)
[2019-04-16 03:41] LABS: Basophils # 0.1 K/mcL (0.0-0.2); Eosinophils % 3.2 %; Hematocrit 30.8 % (37.5-50.1); Immature Granulocytes % 4.4 % (0-4); Mean Corpuscular HGB Conc 32.5 g/dL (31.6-35.5); Mean Corpuscular Hemoglobin 28.8 pg (28.0-33.3); Mean Corpuscular Volume 88.8 fL (83.0-100.0); Mean Platelet Volume 9.1 fL (9.4-12.4); Monocytes % 3.9 %; Neutrophils # 22.3 K/mcL (1.6-8.9); Platelet Count 386 K/mcL (140-400); Red Blood Count 3.47 M/mcL (4.19-5.50); Red Cell Distribution Width 17.2 % (11.5-14.5); Segmented Neutrophils % 84.2 %; White Blood Count 26.5 K/mcL (4.3-11.1)
[2019-04-16 03:45] LABS: Eosinophils # 0.9 K/mcL (0.0-0.6)
[2019-04-16 03:58] LABS: Calcium 8.4 mg/dL (8.6-10.3); Magnesium 2.3 mg/dL (1.6-2.6); Phosphorous 3.8 mg/dL (2.7-4.5); Potassium 4.6 mEq/L (3.5-5.1)
[2019-04-16 04:28] LABS: Platelet Estimate Normal (Normal)
[2019-04-16] MEDS ORDERED: cefTRIAXone 2,000 MG in 0.9 % Sodium Chloride Mini Bag 100 ML IVPB SCH (09:00)
[2019-04-16] MEDS: Metoprolol XL (24 HR) Succ 50 MG TAB.ER.24H PO SCH (09:41)
[2019-04-16] MEDS: Gentamicin Oint 15 GM TUBE TP SCH (09:41)
[2019-04-16] MEDS: Desitin (Zinc Oxide) 56 GM TUBE TP SCH (09:41)
[2019-04-16] MEDS: Lactobacillus 1 EACH CAP.SPRINK PO SCH (09:41)
[2019-04-16] MEDS: Famotidine 20 MG TABLET PO SCH ×2 (09:41→18:48)
[2019-04-16] MEDS: Cholestyramine 4 GM POWD.PACK PO SCH ×2 (15:42→16:50)
[2019-04-16 15:49] LABS: Red Cell Distribution Width 17.2 % (11.5-14.5)
[2019-04-16 15:50] LABS: Hematocrit 32.2 % (37.5-50.1); Mean Corpuscular HGB Conc 31.1 g/dL (31.6-35.5); Mean Corpuscular Volume 93.3 fL (83.0-100.0); Mean Platelet Volume 8.8 fL (9.4-12.4); Platelet Count 344 K/mcL (140-400); Red Blood Count 3.45 M/mcL (4.19-5.50); White Blood Count 27.5 K/mcL (4.3-11.1)
[2019-04-16 16:00] LABS: Heparin anti-factor XA UFH 0.15 IU/mL (0.30-0.70); INR 1.5; Prothrombin Time 17.3 Seconds (9.4-12.1)
[2019-04-16] MEDS ORDERED: MetroNIDAZOLE 500 MG/100 ML 500 MG/100 ML BAG IVPB SCH (16:00)
[2019-04-16] MEDS ORDERED: Insulin LISPRO 300 UNITS/3 ML VIAL SQ SCH ×2 (16:30→21:00)
[2019-04-16] MEDS ORDERED: *HR* FentaNYL (PF) 100 MCG/2 ML VIAL ONE (17:49)
[2019-04-16] MEDS ORDERED: Lidocaine -MPF 2% 2 ML VIAL ONE (17:50)
[2019-04-16] MEDS ORDERED: *HR* Propofol 200 MG/20 ML VIAL IVP ONE (17:50)
[2019-04-16] MEDS ORDERED: *HR* Succinylcholine 200 MG/10 ML VIAL IVP ONE (17:50)
[2019-04-16] MEDS ORDERED: Lidocaine -MPF 4% 5 ML AMPUL ONE (17:50)
[2019-04-16] MEDS ORDERED: Ondansetron 4 MG/2 ML VIAL ONE (17:50)
[2019-04-16] MEDS ORDERED: *HR* Heparin 5,000 UNIT/ML VIAL IVP PRN ×4 (18:00→21:33)
[2019-04-16] MEDS ORDERED: Heparin 25,000 UNIT/250 ML D5W 25,000 UNIT/250 ML IV.SOLN IVC SCH ×2 (18:00→21:33)
[2019-04-16] MEDS ORDERED: *HR* HYDROmorphone (PF) 1 MG/ML SYRINGE IVP PRN (18:35)
[2019-04-16] MEDS ORDERED: *HR* PHENYLEPHRINE 1,000 MCG/10 ML SYRINGE IVP ONE (18:58)
[2019-04-16 19:55] LABS: Adenovirus F 40/41 PCR Not detected (Not detect); Astrovirus PCR Not detected (Not detect); C.difficile Toxin A/B Gene PCR Not detected (Not detect); Campylobacter by PCR Not detected (Not detect); Cryptosporidium by PCR Not detected (Not detect); Cyclospora cayetanensis PCR Not detected (Not detect); E. coli O157 by PCR Not detected (Not detect); Entamoeba histolytica PCR Not detected (Not detect); Enteroaggregative E.coli(EAEC) Not detected (Not detect); Enteropathogenic E.coli(EPEC) Not detected (Not detect); Enterotoxigenic E.coli (ETEC) Not detected (Not detect); Giardia lamblia PCR Not detected (Not detect); Norovirus GI/GII PCR Not detected (Not detect); Plesiomonas shigelloides PCR Not detected (Not detect); Rotavirus A PCR Not detected (Not detect); Salmonella PCR Not detected (Not detect); Sapovirus PCR Not detected (Not detect); Shig/EnteroinvasiveE coli EIEC Not detected (Not detect); Shigalike tox-prod E coli STEC Not detected (Not detect); Vibrio PCR Not detected (Not detect); Vibrio cholerae PCR Not detected (Not detect); Yersinia enterocolitica PCR Not detected (Not detect)
[2019-04-16] MEDS ORDERED: D5% in Water 1,000 ML IVC PRN (21:33)
[2019-04-16] MEDS ORDERED: Eucerin Cream 57 GM TUBE TP PRN (21:33)
[2019-04-16] MEDS ORDERED: *HR* Dextrose 50 % in Water (Syg) 50 ML SYRINGE IVP PRN (21:33)
[2019-04-16] MEDS ORDERED: Ondansetron 4 MG/2 ML VIAL IVP PRN (21:33)
[2019-04-16] MEDS ORDERED: Dextrose Gel 15 GM/37.5 ML TUBE PO PRN ×2 (21:33)
[2019-04-16] MEDS ORDERED: DAPTOmycin 500 MG in 0.9 % Sodium Chloride 100 ML IVPB SCH (23:00)
[2019-04-17] MEDS ORDERED: MetroNIDAZOLE 500 MG/100 ML 500 MG/100 ML BAG IVPB SCH
[2019-04-17] MEDS: Acetaminophen 325 MG TABLET PO SCH ×4 (00:35→18:27)
[2019-04-17] MEDS: Piperacillin/Tazobactam 3.375 GM in 0.9 % Sodium Chloride Mini Bag 100 ML IVPB SCH ×3 (02:33→18:28)
[2019-04-17 06:45] LABS: Basophils % 0.3 %; Monocytes % 1.6 %
[2019-04-17 06:47] LABS: Basophils # 0.1 K/mcL (0.0-0.2); Eosinophils % 0.1 %; Hemoglobin 9.6 g/dL (12.9-16.9); Immature Granulocytes % 3.8 % (0-4); Lymphocytes # 0.8 K/mcL (0.6-4.6); Lymphocytes % 2.8 %; Mean Corpuscular Hemoglobin 28.4 pg (28.0-33.3); Mean Corpuscular Volume 94.7 fL (83.0-100.0); Monocytes # 0.4 K/mcL (0.0-1.3); Platelet Count 336 K/mcL (140-400); Red Blood Count 3.38 M/mcL (4.19-5.50); Red Cell Distribution Width 17.5 % (11.5-14.5); Segmented Neutrophils % 91.4 %; White Blood Count 27.4 K/mcL (4.3-11.1)
[2019-04-17 07:03] LABS: Calcium 8.6 mg/dL (8.6-10.3); Potassium 5.2 mEq/L (3.5-5.1)
[2019-04-17] MEDS: Insulin LISPRO 300 UNITS/3 ML VIAL SQ SCH ×3 (08:50→16:53)
[2019-04-17] MEDS: Metoprolol XL (24 HR) Succ 50 MG TAB.ER.24H PO SCH (09:08)
[2019-04-17] MEDS: Lactobacillus 1 EACH CAP.SPRINK PO SCH ×2 (09:08→21:43)
[2019-04-17] MEDS: Famotidine 20 MG TABLET PO SCH ×2 (09:08→16:46)
[2019-04-17] MEDS: Cholestyramine 4 GM POWD.PACK PO SCH ×3 (09:08→16:47)
[2019-04-17] MEDS: Gentamicin Oint 15 GM TUBE TP SCH (09:10)
[2019-04-17] MEDS: Desitin (Zinc Oxide) 56 GM TUBE TP SCH (09:11)
[2019-04-17 09:33] LABS: Magnesium 2.4 mg/dL (1.6-2.6)
[2019-04-17] MEDS: Heparin 25,000 UNIT/250 ML D5W 25,000 UNIT/250 ML IV.SOLN IVC SCH (16:47)
[2019-04-17 16:57] LABS: Mean Corpuscular Hemoglobin 28.9 pg (28.0-33.3); Mean Platelet Volume 8.7 fL (9.4-12.4)
[2019-04-17 16:59] LABS: Hematocrit 31.5 % (37.5-50.1); Hemoglobin 9.7 g/dL (12.9-16.9); Mean Corpuscular HGB Conc 30.8 g/dL (31.6-35.5); Mean Corpuscular Volume 93.8 fL (83.0-100.0); Platelet Count 335 K/mcL (140-400); Red Blood Count 3.36 M/mcL (4.19-5.50); Red Cell Distribution Width 17.5 % (11.5-14.5)
[2019-04-17 17:04] LABS: INR 1.3; Prothrombin Time 14.4 Seconds (9.4-12.1)
[2019-04-17 17:04] LABS: White Blood Count 31.2 K/mcL (4.3-11.1)
[2019-04-17] MEDS ORDERED: Insulin LISPRO 300 UNITS/3 ML VIAL SQ SCH (21:00)
[2019-04-18] MEDS ORDERED: DAPTOmycin 500 MG in 0.9 % Sodium Chloride 100 ML IVPB SCH
[2019-04-18] MEDS: Acetaminophen 325 MG TABLET PO SCH ×3 (00:41→11:29)
[2019-04-18] MEDS: Piperacillin/Tazobactam 3.375 GM in 0.9 % Sodium Chloride Mini Bag 100 ML IVPB SCH ×2 (03:07→11:29)
[2019-04-18] MEDS ORDERED: Artificial Tears SOLN 15 ML BOTTLE LEFT EYE SCH (04:00)
[2019-04-18] MEDS: Nystatin SUSP 5 ML UD.LIQ PO SCH ×3 (05:02→14:53)
[2019-04-18 05:21] LABS: Basophils % 0.4 %
[2019-04-18 05:23] LABS: Basophils # 0.1 K/mcL (0.0-0.2); Eosinophils # 0.5 K/mcL (0.0-0.6); Eosinophils % 1.6 %; Hematocrit 32.4 % (37.5-50.1); Immature Granulocytes % 3.2 % (0-4); Lymphocytes % 3.7 %; Mean Corpuscular HGB Conc 30.9 g/dL (31.6-35.5); Mean Corpuscular Hemoglobin 29.2 pg (28.0-33.3); Mean Corpuscular Volume 94.7 fL (83.0-100.0); Monocytes % 3.1 %; Neutrophils # 29.5 K/mcL (1.6-8.9); Nucleated Red Blood Cells 0.1 /100 WBC (0); Platelet Count 349 K/mcL (140-400); Red Blood Count 3.42 M/mcL (4.19-5.50); Red Cell Distribution Width 17.7 % (11.5-14.5)
[2019-04-18 05:32] LABS: Lymphocytes # 1.2 K/mcL (0.6-4.6); White Blood Count 33.5 K/mcL (4.3-11.1)
[2019-04-18 05:42] LABS: Calcium 8.7 mg/dL (8.6-10.3); Magnesium 2.2 mg/dL (1.6-2.6); Potassium 4.6 mEq/L (3.5-5.1)
[2019-04-18] MEDS: Heparin 25,000 UNIT/250 ML D5W 25,000 UNIT/250 ML IV.SOLN IVC SCH (06:47)
[2019-04-18] MEDS: Insulin LISPRO 300 UNITS/3 ML VIAL SQ SCH ×2 (08:50→12:49)
[2019-04-18] MEDS: Lactobacillus 1 EACH CAP.SPRINK PO SCH (08:53)
[2019-04-18] MEDS: Cholestyramine 4 GM POWD.PACK PO SCH (08:53)
[2019-04-18] MEDS: Metoprolol XL (24 HR) Succ 50 MG TAB.ER.24H PO SCH (08:53)
[2019-04-18] MEDS: Famotidine 20 MG TABLET PO SCH (08:53)
[2019-04-18] MEDS: Gentamicin Oint 15 GM TUBE TP SCH (10:43)
[2019-04-18] MEDS: Desitin (Zinc Oxide) 56 GM TUBE TP SCH (10:43)
[2019-04-18 15:36] VITALS: BP 110/66
== END 2019-04-18 17:56 | disposition critical access hospital (66) | DRG 853 ==
LOC: 2ANU 14:54 → EMEROOARM 14:54 → 2ANU 21:34 → ICNU 04-09 04:25 → SUATTDRO 04-09 13:08 → 2NNU 04-10 20:05 → 3ANU 04-12 15:49 → 2NNU 04-12 16:05 → 3ANU 04-12 18:47
PROVIDERS: ADMIT Internal Medicine; ATTEND Pharmacist

== ENCOUNTER 2019-05-10 13:03 | Observation (INO) ==
[2019-05-10] MEDS ORDERED: 0.9 % Sodium Chloride 1,000 ML ONE (13:30)
[2019-05-10] MEDS ORDERED: 0.9 % Sodium Chloride 1,000 ML IVC ONE (13:37)
[2019-05-10] MEDS ORDERED: Isovue-370 500 ML BOTTLE IVP ONE (13:55)
[2019-05-10] MEDS ORDERED: WATER FOR INJ IR STA (14:00)
[2019-05-10] MEDS ORDERED: TRANEXAMIC ACID IR STA (14:00)
[2019-05-10] MEDS ORDERED: WATER FOR INJ NS STA (14:13)
[2019-05-10] MEDS ORDERED: TRANEXAMIC ACID NS STA (14:13)
[2019-05-10 14:38] LABS: Basophils # 0.1 K/mcL (0.0-0.2); Basophils % 0.8 %; Eosinophils # 0.5 K/mcL (0.0-0.6); Eosinophils % 5.3 %; Hematocrit 26.3 % (37.5-50.1); Hemoglobin 8.2 g/dL (12.9-16.9); Immature Granulocytes % 0.8 % (0-4); Lymphocytes # 1.6 K/mcL (0.6-4.6); Lymphocytes % 15.6 %; Mean Corpuscular HGB Conc 31.2 g/dL (31.6-35.5); Mean Corpuscular Volume 92.9 fL (83.0-100.0); Mean Platelet Volume 9.1 fL (9.4-12.4); Monocytes # 0.9 K/mcL (0.0-1.3); Monocytes % 8.9 %; Platelet Count 197 K/mcL (140-400); Red Blood Count 2.83 M/mcL (4.19-5.50); Red Cell Distribution Width 20.2 % (11.5-14.5); Segmented Neutrophils % 68.6 %; White Blood Count 10.2 K/mcL (4.3-11.1)
[2019-05-10 14:45] LABS: INR 1.4; Prothrombin Time 15.9 Seconds (9.4-12.1)
[2019-05-10 14:54] LABS: Platelet Estimate Normal (Normal)
[2019-05-10 14:57] LABS: Calcium 7.4 mg/dL (8.6-10.3); Potassium 4.5 mEq/L (3.5-5.1)
[2019-05-10] MEDS ORDERED: *HR* FentaNYL (PF) 100 MCG/2 ML VIAL IVP ONE (15:08)
[2019-05-10 17:31] LABS: Hematocrit 24.8 % (37.5-50.1); Hemoglobin 7.7 g/dL (12.9-16.9)
[2019-05-10] MEDS ORDERED: Eucerin Cream 57 GM TUBE TP PRN (17:35)
[2019-05-10] MEDS ORDERED: Naloxone 0.4 MG/ML INJ IVP PRN (17:37)
[2019-05-10] MEDS ORDERED: *HR* FentaNYL (PF) 100 MCG/2 ML VIAL IVP PRN (19:17)
[2019-05-10] MEDS ORDERED: 0.9 % Sodium Chloride 500 ML ONE (20:07)
[2019-05-10] MEDS ORDERED: Insulin LISPRO 300 UNITS/3 ML VIAL SQ SCH (21:00)
[2019-05-11 00:42] LABS: Basophils # 0.1 K/mcL (0.0-0.2); Basophils % 0.9 %; Eosinophils # 0.5 K/mcL (0.0-0.6); Eosinophils % 5.2 %; Immature Granulocytes % 1.1 % (0-4); Immature Platelets 1.7 % (1.1-6.1); Lymphocytes # 1.8 K/mcL (0.6-4.6); Lymphocytes % 17.5 %; Mean Corpuscular HGB Conc 31.7 g/dL (31.6-35.5); Mean Corpuscular Hemoglobin 29.1 pg (28.0-33.3); Mean Corpuscular Volume 91.7 fL (83.0-100.0); Mean Platelet Volume 9.3 fL (9.4-12.4); Monocytes % 9.1 %; Neutrophils # 6.9 K/mcL (1.6-8.9); Platelet Count 184 K/mcL (140-400); Red Blood Count 3.27 M/mcL (4.19-5.50); Red Cell Distribution Width 20.4 % (11.5-14.5); Segmented Neutrophils % 66.2 %; White Blood Count 10.4 K/mcL (4.3-11.1)
[2019-05-11 00:45] LABS: Hemoglobin 9.5 g/dL (12.9-16.9)
[2019-05-11 00:54] LABS: Calcium 7.3 mg/dL (8.6-10.3); Potassium 4.5 mEq/L (3.5-5.1)
[2019-05-11 01:17] LABS: Hypochromasia Present (Not Present)
[2019-05-11 01:18] LABS: Platelet Estimate Normal (Normal)
[2019-05-11] MEDS: Metoprolol XL (24 HR) Succ 50 MG TAB.ER.24H PO SCH (08:28)
[2019-05-11] MEDS: Famotidine 20 MG TABLET PO SCH ×2 (08:28→16:45)
[2019-05-11] MEDS: Insulin LISPRO 300 UNITS/3 ML VIAL SQ SCH ×3 (08:36→17:28)
[2019-05-11] MEDS: Erythromycin OPTH Oint BOTH EYES SCH (09:17)
[2019-05-11 11:04] LABS: Hematocrit 26.3 % (37.5-50.1); Hemoglobin 8.4 g/dL (12.9-16.9)
[2019-05-11] MEDS ORDERED: Dextrose Gel 15 GM/37.5 ML TUBE PO PRN ×2 (16:02)
[2019-05-11] MEDS ORDERED: *HR* Dextrose 50 % in Water (Syg) 50 ML SYRINGE IVP PRN (16:02)
[2019-05-11] MEDS ORDERED: D5% in Water 1,000 ML IVC PRN (16:02)
[2019-05-11 16:30] LABS: Hematocrit 25.3 % (37.5-50.1); Hemoglobin 8.2 g/dL (12.9-16.9)
[2019-05-12] MEDS: *HR* OxyCODONE/APAP 5/325 TABLET PO PRN ×2 (01:37→09:28)
[2019-05-12] MEDS: Insulin LISPRO 300 UNITS/3 ML VIAL SQ SCH ×3 (08:07→17:04)
[2019-05-12] MEDS: Metoprolol XL (24 HR) Succ 50 MG TAB.ER.24H PO SCH (08:19)
[2019-05-12] MEDS: Famotidine 20 MG TABLET PO SCH ×2 (08:20→16:17)
[2019-05-12] MEDS: Erythromycin OPTH Oint BOTH EYES SCH (08:20)
[2019-05-12 09:11] LABS: Hematocrit 26.8 % (37.5-50.1); Hemoglobin 8.2 g/dL (12.9-16.9); Mean Corpuscular HGB Conc 30.6 g/dL (31.6-35.5); Mean Corpuscular Hemoglobin 29.2 pg (28.0-33.3); Mean Corpuscular Volume 95.4 fL (83.0-100.0); Mean Platelet Volume 9.1 fL (9.4-12.4); Platelet Count 162 K/mcL (140-400); Red Blood Count 2.81 M/mcL (4.19-5.50); Red Cell Distribution Width 20.8 % (11.5-14.5); White Blood Count 10.5 K/mcL (4.3-11.1)
[2019-05-12 09:29] LABS: Calcium 7.4 mg/dL (8.6-10.3); Magnesium 1.7 mg/dL (1.6-2.6); Phosphorous 2.5 mg/dL (2.7-4.5); Potassium 4.3 mEq/L (3.5-5.1)
[2019-05-13 05:08] LABS: Basophils # 0.1 K/mcL (0.0-0.2); Basophils % 0.7 %; Eosinophils # 0.9 K/mcL (0.0-0.6); Eosinophils % 7.9 %; Hematocrit 26.6 % (37.5-50.1); Hemoglobin 8.3 g/dL (12.9-16.9); Immature Granulocytes % 1.1 % (0-4); Lymphocytes % 17.3 %; Mean Corpuscular HGB Conc 31.2 g/dL (31.6-35.5); Mean Corpuscular Hemoglobin 29.1 pg (28.0-33.3); Mean Corpuscular Volume 93.3 fL (83.0-100.0); Mean Platelet Volume 9.1 fL (9.4-12.4); Monocytes % 8.8 %; Platelet Count 175 K/mcL (140-400); Red Blood Count 2.85 M/mcL (4.19-5.50); Red Cell Distribution Width 20.5 % (11.5-14.5); Segmented Neutrophils % 64.2 %; White Blood Count 11.3 K/mcL (4.3-11.1)
[2019-05-13 05:11] LABS: Neutrophils # 7.3 K/mcL (1.6-8.9)
[2019-05-13 05:29] LABS: Calcium 7.5 mg/dL (8.6-10.3); Magnesium 1.7 mg/dL (1.6-2.6); Phosphorous 2.6 mg/dL (2.7-4.5); Potassium 4.4 mEq/L (3.5-5.1)
[2019-05-13 05:34] LABS: Hypochromasia Present (Not Present); Platelet Estimate Normal (Normal)
[2019-05-13] MEDS: Metoprolol XL (24 HR) Succ 50 MG TAB.ER.24H PO SCH (08:08)
[2019-05-13] MEDS: Famotidine 20 MG TABLET PO SCH ×2 (08:08→17:47)
[2019-05-13] MEDS: D5% in 0.9% NACL 1,000 ML IVC SCH ×2 (08:09→17:15)
[2019-05-13] MEDS: Insulin LISPRO 300 UNITS/3 ML VIAL SQ SCH ×3 (08:10→17:50)
[2019-05-13] MEDS: *HR* OxyCODONE/APAP 5/325 TABLET PO PRN ×2 (08:17→15:38)
[2019-05-13] MEDS: Erythromycin OPTH Oint BOTH EYES SCH (08:18)
[2019-05-14 06:49] VITALS: BP 120/72
[2019-05-14] MEDS: Insulin LISPRO 300 UNITS/3 ML VIAL SQ SCH ×3 (07:54→17:02)
[2019-05-14] MEDS: Famotidine 20 MG TABLET PO SCH ×2 (10:37→17:22)
[2019-05-14] MEDS: Metoprolol XL (24 HR) Succ 50 MG TAB.ER.24H PO SCH (10:37)
[2019-05-14] MEDS: Erythromycin OPTH Oint BOTH EYES SCH (10:38)
[2019-05-14] MEDS: *HR* OxyCODONE/APAP 5/325 TABLET PO PRN (11:54)
[2019-05-14] MEDS ORDERED: Ondansetron 4 MG/2 ML VIAL IVP PRN (12:08)
== END 2019-05-14 18:51 | disposition home health service (06) ==
LOC: EMEROOARM 13:03 → 3BNU 13:03 → SUATTDRO 17:39 → 2NNU 17:45 → 3ANU 05-12 20:35
PROVIDERS: ADMIT Internal Medicine; ATTEND Family Medicine

== ENCOUNTER 2019-05-14 20:07 | Inpatient (IN) ==
[2019-05-14] MEDS ORDERED: Isovue-370 500 ML BOTTLE IVP ONE (20:50)
[2019-05-14 20:56] LABS: Bilirubin,Urine Negative (Negative); Blood,Urine Trace (Negative); Clarity,Urine Cloudy (Clear); Color,Urine Yellow (Yellow); Glucose,Urine (UA) Normal (Normal); Ketones,Urine Negative (Negative); Leukocyte Esterase,Urine Large (Negative); Nitrite,Urine Negative (Negative); PH,Urine 6.5 pH Units (5.0-8.0); Protein,Urine 100 mg/dL (Neg-Trace); Specific Gravity,Urine 1.017 (1.010-1.025); Urobilinogen,Urine Normal (Normal)
[2019-05-14 20:58] LABS: Bacteria,Urine None Seen per hpf (None-Few); Hyaline Casts,Urine Few per lpf (None-Few); RBC,Urine 0-3 per hpf (0-3); Squamous Epithelial Cell,Urine Moderate per lpf (None-Few); WBC,Urine TNTC per hpf (0-3)
[2019-05-14] MEDS ORDERED: 0.9 % Sodium Chloride 500 ML IVC ONE ×2 (21:06→23:05)
[2019-05-14 21:09] LABS: Basophils # 0.1 K/mcL (0.0-0.2); Basophils % 0.8 %; Eosinophils # 0.4 K/mcL (0.0-0.6); Eosinophils % 2.7 %; Hematocrit 30.4 % (37.5-50.1); Hemoglobin 9.1 g/dL (12.9-16.9); Immature Granulocytes % 1.2 % (0-4); Lymphocytes # 1.7 K/mcL (0.6-4.6); Lymphocytes % 12.7 %; Mean Corpuscular HGB Conc 29.9 g/dL (31.6-35.5); Mean Corpuscular Hemoglobin 28.7 pg (28.0-33.3); Mean Corpuscular Volume 95.9 fL (83.0-100.0); Mean Platelet Volume 9.4 fL (9.4-12.4); Monocytes # 1.2 K/mcL (0.0-1.3); Monocytes % 8.8 %; Neutrophils # 9.7 K/mcL (1.6-8.9); Platelet Count 216 K/mcL (140-400); Red Blood Count 3.17 M/mcL (4.19-5.50); Red Cell Distribution Width 20.7 % (11.5-14.5); Segmented Neutrophils % 73.8 %; White Blood Count 13.1 K/mcL (4.3-11.1)
[2019-05-14 21:33] LABS: Calcium 7.8 mg/dL (8.6-10.3); Potassium 4.8 mEq/L (3.5-5.1); Troponin I 0.03 ng/mL (< 0.04)
[2019-05-14] MEDS ORDERED: *HR* Heparin 5,000 UNIT/ML VIAL IVP ONE (21:44)
[2019-05-14] MEDS ORDERED: *HR* Heparin 5,000 UNIT/ML VIAL IVP PRN ×2 (21:44)
[2019-05-14] MEDS ORDERED: cefTRIAXone 1,000 MG in Water for inj. (sterile) 10 ML IVP ONE (21:45)
[2019-05-14 22:24] LABS: Hematocrit 27.5 % (37.5-50.1); Hemoglobin 8.8 g/dL (12.9-16.9); Mean Corpuscular Hemoglobin 29.6 pg (28.0-33.3); Mean Corpuscular Volume 92.6 fL (83.0-100.0); Platelet Count 197 K/mcL (140-400); Red Blood Count 2.97 M/mcL (4.19-5.50); Red Cell Distribution Width 20.8 % (11.5-14.5); White Blood Count 13.1 K/mcL (4.3-11.1)
[2019-05-14 22:36] LABS: INR 1.6; Prothrombin Time 18.4 Seconds (9.4-12.1)
[2019-05-14] MEDS ORDERED: Naloxone 0.4 MG/ML INJ IVP PRN (23:35)
[2019-05-15] MEDS: Heparin 25,000 UNIT/250 ML D5W 25,000 UNIT/250 ML IV.SOLN IVC SCH ×2 (01:03→13:38)
[2019-05-15] MEDS ORDERED: D5% in Water 1,000 ML IVC PRN (01:21)
[2019-05-15] MEDS ORDERED: *HR* Dextrose 50 % in Water (Syg) 50 ML SYRINGE IVP PRN (01:21)
[2019-05-15] MEDS ORDERED: Dextrose Gel 15 GM/37.5 ML TUBE PO PRN ×2 (01:21)
[2019-05-15] MEDS ORDERED: 0.9 % Sodium Chloride 1,000 ML IVC SCH (02:15)
[2019-05-15] MEDS: Insulin LISPRO 300 UNITS/3 ML VIAL SQ SCH ×3 (08:05→17:47)
[2019-05-15 08:26] LABS: Basophils # 0.1 K/mcL (0.0-0.2); Basophils % 0.5 %; Eosinophils # 0.5 K/mcL (0.0-0.6); Eosinophils % 3.6 %; Hematocrit 24.6 % (37.5-50.1); Hemoglobin 7.9 g/dL (12.9-16.9); Immature Granulocytes % 1.1 % (0-4); Lymphocytes # 2.1 K/mcL (0.6-4.6); Lymphocytes % 16.6 %; Mean Corpuscular HGB Conc 32.1 g/dL (31.6-35.5); Mean Corpuscular Hemoglobin 29.2 pg (28.0-33.3); Mean Corpuscular Volume 90.8 fL (83.0-100.0); Mean Platelet Volume 9.2 fL (9.4-12.4); Monocytes % 7.7 %; Neutrophils # 9.1 K/mcL (1.6-8.9); Platelet Count 195 K/mcL (140-400); Red Blood Count 2.71 M/mcL (4.19-5.50); Red Cell Distribution Width 20.9 % (11.5-14.5); Segmented Neutrophils % 70.5 %; White Blood Count 12.9 K/mcL (4.3-11.1)
[2019-05-15] MEDS ORDERED: *HR* OxyCODONE/APAP 5/325 TABLET PO PRN (08:32)
[2019-05-15 08:47] LABS: Albumin/Globulin Ratio 0.6 (1.1-2.2); Bilirubin,Total 1.2 mg/dL (0.3-1.0); Calcium 7.3 mg/dL (8.6-10.3); Globulin 3.3 g/dL (2.4-3.5); Magnesium 1.8 mg/dL (1.6-2.6); Phosphorous 3.3 mg/dL (2.7-4.5); Potassium 4.5 mEq/L (3.5-5.1); Total Protein 5.3 g/dL (6.4-8.9)
[2019-05-15] MEDS: Metoprolol XL (24 HR) Succ 50 MG TAB.ER.24H PO SCH (10:29)
[2019-05-15] MEDS: Erythromycin OPTH Oint BOTH EYES SCH (10:29)
[2019-05-15] MEDS: Lactobacillus 1 EACH CAP.SPRINK PO SCH ×2 (10:30→20:12)
[2019-05-15] MEDS: Eucerin Cream 57 GM TUBE TP PRN (10:30)
[2019-05-15] MEDS: Cholestyramine 4 GM POWD.PACK PO SCH ×2 (10:30→20:11)
[2019-05-15] MEDS: Lidocaine Jelly 6ml 1 APPL/6 ML JEL.PF.APP TP SCH (17:04)
[2019-05-15] MEDS: Famotidine 20 MG TABLET PO SCH (17:59)
[2019-05-15] MEDS: *HR* Heparin 5,000 UNIT/ML VIAL SQ SCH (17:59)
[2019-05-15] MEDS: cefTRIAXone 1,000 MG in Water for inj. (sterile) 10 ML IVP SCH (23:29)
[2019-05-16 03:23] LABS: Basophils # 0.1 K/mcL (0.0-0.2); Basophils % 0.7 %; Eosinophils # 0.4 K/mcL (0.0-0.6); Eosinophils % 4.3 %; Hematocrit 25.5 % (37.5-50.1); Hemoglobin 7.9 g/dL (12.9-16.9); Immature Granulocytes % 1.1 % (0-4); Lymphocytes # 1.5 K/mcL (0.6-4.6); Lymphocytes % 14.7 %; Mean Corpuscular Hemoglobin 28.9 pg (28.0-33.3); Mean Corpuscular Volume 93.4 fL (83.0-100.0); Mean Platelet Volume 9.1 fL (9.4-12.4); Monocytes # 0.7 K/mcL (0.0-1.3); Monocytes % 7.2 %; Neutrophils # 7.4 K/mcL (1.6-8.9); Platelet Count 184 K/mcL (140-400); Red Blood Count 2.73 M/mcL (4.19-5.50); Red Cell Distribution Width 20.9 % (11.5-14.5); White Blood Count 10.3 K/mcL (4.3-11.1)
[2019-05-16 03:42] LABS: Albumin 2.1 g/dL (3.5-5.7); Albumin/Globulin Ratio 0.6 (1.1-2.2); Bilirubin,Total 1.4 mg/dL (0.3-1.0); Calcium 7.4 mg/dL (8.6-10.3); Globulin 3.3 g/dL (2.4-3.5); Magnesium 1.9 mg/dL (1.6-2.6); Potassium 4.2 mEq/L (3.5-5.1); Total Protein 5.4 g/dL (6.4-8.9)
[2019-05-16 04:12] LABS: Platelet Estimate Normal (Normal)
[2019-05-16 04:13] LABS: Anisocytosis 1+ (Not Present)
[2019-05-16] MEDS: *HR* Heparin 5,000 UNIT/ML VIAL SQ SCH ×2 (06:13→18:44)
[2019-05-16] MEDS: Insulin LISPRO 300 UNITS/3 ML VIAL SQ SCH ×3 (07:37→15:46)
[2019-05-16] MEDS: Cholestyramine 4 GM POWD.PACK PO SCH ×2 (07:58→23:44)
[2019-05-16] MEDS: Famotidine 20 MG TABLET PO SCH ×2 (07:58→18:41)
[2019-05-16] MEDS: Erythromycin OPTH Oint BOTH EYES SCH (07:59)
[2019-05-16] MEDS: Aspirin 81 MG TAB.CHEW PO SCH (07:59)
[2019-05-16] MEDS: Lactobacillus 1 EACH CAP.SPRINK PO SCH ×2 (07:59→23:44)
[2019-05-16] MEDS: Metoprolol XL (24 HR) Succ 50 MG TAB.ER.24H PO SCH (07:59)
[2019-05-16] MEDS ORDERED: 0.9 % Sodium Chloride 250 ML IVC SCH (15:15)
[2019-05-16] MEDS ORDERED: Testosterone Cypionate 200 MG/ML 10 ML MDV IM SCH (16:00)
[2019-05-16 16:22] LABS: INR 1.8; Prothrombin Time 19.9 Seconds (9.4-12.1)
[2019-05-16 18:59] LABS: Hepatitis B Surface Antigen Nonreactive (Nonreactive)
[2019-05-16 19:28] LABS: Hepatitis C Virus Antibody Nonreactive (Nonreactive)
[2019-05-16 19:30] LABS: Hepatitis B Core IgM Nonreactive (Nonreactive)
[2019-05-16 19:31] LABS: Hepatitis A Antibody IgM Nonreactive (Nonreactive)
[2019-05-16] MEDS: Ipratropium/Albuterol Neb 3 ML IH SCH (22:43)
[2019-05-16] MEDS: cefTRIAXone 1,000 MG in Water for inj. (sterile) 10 ML IVP SCH (23:44)
[2019-05-17 01:51] LABS: Basophils # 0.1 K/mcL (0.0-0.2); Basophils % 0.7 %; Eosinophils # 0.1 K/mcL (0.0-0.6); Eosinophils % 1.6 %; Hemoglobin 7.7 g/dL (12.9-16.9); Immature Granulocytes % 1.2 % (0-4); Lymphocytes # 1.4 K/mcL (0.6-4.6); Lymphocytes % 16.2 %; Mean Corpuscular HGB Conc 30.8 g/dL (31.6-35.5); Mean Corpuscular Hemoglobin 28.7 pg (28.0-33.3); Mean Corpuscular Volume 93.3 fL (83.0-100.0); Mean Platelet Volume 9.1 fL (9.4-12.4); Monocytes # 0.7 K/mcL (0.0-1.3); Monocytes % 8.3 %; Neutrophils # 6.2 K/mcL (1.6-8.9); Platelet Count 148 K/mcL (140-400); Red Blood Count 2.68 M/mcL (4.19-5.50); Red Cell Distribution Width 20.3 % (11.5-14.5); White Blood Count 8.6 K/mcL (4.3-11.1)
[2019-05-17 02:10] LABS: Albumin 1.9 g/dL (3.5-5.7); Albumin/Globulin Ratio 0.5 (1.1-2.2); Bilirubin,Total 1.3 mg/dL (0.3-1.0); Calcium 7.1 mg/dL (8.6-10.3); Globulin 3.5 g/dL (2.4-3.5); Potassium 4.3 mEq/L (3.5-5.1); Total Protein 5.4 g/dL (6.4-8.9)
[2019-05-17 02:42] LABS: Platelet Estimate Normal (Normal); Reactive Lymphocytes Present (Not Present)
[2019-05-17] MEDS: Ipratropium/Albuterol Neb 3 ML IH SCH ×4 (03:29→22:34)
[2019-05-17] MEDS: *HR* Heparin 5,000 UNIT/ML VIAL SQ SCH ×2 (05:47→17:49)
[2019-05-17] MEDS: Insulin LISPRO 300 UNITS/3 ML VIAL SQ SCH ×3 (07:43→17:40)
[2019-05-17] MEDS: Lidocaine Jelly 6ml 1 APPL/6 ML JEL.PF.APP TP SCH (07:54)
[2019-05-17] MEDS ORDERED: 0.9 % Sodium Chloride 250 ML IVC SCH (08:30)
[2019-05-17] MEDS: Erythromycin OPTH Oint BOTH EYES SCH (09:40)
[2019-05-17] MEDS: Aspirin 81 MG TAB.CHEW PO SCH (12:10)
[2019-05-17] MEDS: Metoprolol XL (24 HR) Succ 50 MG TAB.ER.24H PO SCH (12:10)
[2019-05-17] MEDS: Lactobacillus 1 EACH CAP.SPRINK PO SCH ×2 (12:12→20:35)
[2019-05-17] MEDS: Famotidine 20 MG TABLET PO SCH ×2 (12:12→17:51)
[2019-05-17] MEDS: Cholestyramine 4 GM POWD.PACK PO SCH ×2 (12:12→20:35)
[2019-05-17] MEDS: cefTRIAXone 1,000 MG in Water for inj. (sterile) 10 ML IVP SCH (23:40)
[2019-05-18] MEDS: Ipratropium/Albuterol Neb 3 ML IH SCH ×4 (04:22→21:24)
[2019-05-18] MEDS: *HR* Heparin 5,000 UNIT/ML VIAL SQ SCH ×2 (05:16→17:45)
[2019-05-18 05:49] LABS: Hematocrit 26.2 % (37.5-50.1); Hemoglobin 8.3 g/dL (12.9-16.9); Mean Corpuscular HGB Conc 31.7 g/dL (31.6-35.5); Mean Corpuscular Hemoglobin 29.5 pg (28.0-33.3); Mean Corpuscular Volume 93.2 fL (83.0-100.0); Mean Platelet Volume 9.5 fL (9.4-12.4); Platelet Count 136 K/mcL (140-400); Red Blood Count 2.81 M/mcL (4.19-5.50); Red Cell Distribution Width 20.3 % (11.5-14.5); White Blood Count 8.1 K/mcL (4.3-11.1)
[2019-05-18 06:08] LABS: Albumin 1.9 g/dL (3.5-5.7); Albumin/Globulin Ratio 0.6 (1.1-2.2); Bilirubin,Direct 1.3 mg/dL (0.0-0.2); Bilirubin,Indirect 0.4 mg/dL (0.0-1.0); Bilirubin,Total 1.7 mg/dL (0.3-1.0); Calcium 7.3 mg/dL (8.6-10.3); Globulin 3.3 g/dL (2.4-3.5); Magnesium 1.9 mg/dL (1.6-2.6); Potassium 4.1 mEq/L (3.5-5.1); Total Protein 5.2 g/dL (6.4-8.9)
[2019-05-18] MEDS: Insulin LISPRO 300 UNITS/3 ML VIAL SQ SCH ×3 (08:12→17:45)
[2019-05-18] MEDS: Metoprolol XL (24 HR) Succ 50 MG TAB.ER.24H PO SCH (10:08)
[2019-05-18] MEDS: Aspirin 81 MG TAB.CHEW PO SCH (10:09)
[2019-05-18] MEDS: Lactobacillus 1 EACH CAP.SPRINK PO SCH ×2 (10:09→21:00)
[2019-05-18] MEDS: Famotidine 20 MG TABLET PO SCH ×2 (10:09→19:34)
[2019-05-18] MEDS: Cholestyramine 4 GM POWD.PACK PO SCH ×2 (10:09→21:00)
[2019-05-18] MEDS: Erythromycin OPTH Oint BOTH EYES SCH (10:12)
[2019-05-18] MEDS ORDERED: 0.9 % Sodium Chloride 500 ML ONE (11:33)
[2019-05-18] MEDS ORDERED: 0.9 % Sodium Chloride 500 ML IVC ONE (11:36)
[2019-05-18] MEDS: Lidocaine Jelly 6ml 1 APPL/6 ML JEL.PF.APP TP SCH (19:34)
[2019-05-18] MEDS: *HR* HYDROcodone/Acet 5/325 mg TABLET PO PRN (21:00)
[2019-05-19] MEDS: cefTRIAXone 1,000 MG in Water for inj. (sterile) 10 ML IVP SCH ×2 (03:12→23:53)
[2019-05-19] MEDS: Ipratropium/Albuterol Neb 3 ML IH SCH ×4 (03:49→21:26)
[2019-05-19] MEDS: *HR* Heparin 5,000 UNIT/ML VIAL SQ SCH ×2 (05:42→17:54)
[2019-05-19 06:29] LABS: Hematocrit 25.9 % (37.5-50.1); Hemoglobin 8.6 g/dL (12.9-16.9); Mean Corpuscular HGB Conc 33.2 g/dL (31.6-35.5); Mean Corpuscular Hemoglobin 29.3 pg (28.0-33.3); Mean Corpuscular Volume 88.1 fL (83.0-100.0); Mean Platelet Volume 9.3 fL (9.4-12.4); Platelet Count 119 K/mcL (140-400); Red Blood Count 2.94 M/mcL (4.19-5.50); Red Cell Distribution Width 20.3 % (11.5-14.5); White Blood Count 8.3 K/mcL (4.3-11.1)
[2019-05-19 06:44] LABS: Albumin 1.8 g/dL (3.5-5.7); Albumin/Globulin Ratio 0.6 (1.1-2.2); Calcium 7.1 mg/dL (8.6-10.3); Globulin 3.1 g/dL (2.4-3.5); Potassium 4.2 mEq/L (3.5-5.1); Total Protein 4.9 g/dL (6.4-8.9)
[2019-05-19 07:52] LABS: ANA IgG by ELISA DETECTED (None Detected)
[2019-05-19] MEDS: Insulin LISPRO 300 UNITS/3 ML VIAL SQ SCH ×3 (09:00→18:00)
[2019-05-19] MEDS: Cholestyramine 4 GM POWD.PACK PO SCH ×2 (09:03→21:34)
[2019-05-19] MEDS: Metoprolol XL (24 HR) Succ 50 MG TAB.ER.24H PO SCH (09:03)
[2019-05-19] MEDS: Aspirin 81 MG TAB.CHEW PO SCH (09:43)
[2019-05-19] MEDS: Lactobacillus 1 EACH CAP.SPRINK PO SCH ×2 (09:43→21:33)
[2019-05-19] MEDS: Famotidine 20 MG TABLET PO SCH ×2 (09:43→17:53)
[2019-05-19] MEDS: Erythromycin OPTH Oint BOTH EYES SCH (11:22)
[2019-05-19] MEDS ORDERED: Ondansetron 4 MG/2 ML VIAL IVP PRN (11:36)
[2019-05-19] MEDS ORDERED: D5% in Water 1,000 ML IVC SCH (17:15)
[2019-05-19] MEDS: D5% in 0.9% NACL 1,000 ML IVC SCH (17:52)
[2019-05-19] MEDS: *HR* HYDROcodone/Acet 5/325 mg TABLET PO PRN (21:33)
[2019-05-20] MEDS: Eucerin Cream 57 GM TUBE TP PRN (00:37)
[2019-05-20] MEDS: Lidocaine Jelly 6ml 1 APPL/6 ML JEL.PF.APP TP SCH ×3 (01:04→10:14)
[2019-05-20 03:18] LABS: Hematocrit 26.6 % (37.5-50.1); Hemoglobin 8.5 g/dL (12.9-16.9); Mean Corpuscular Hemoglobin 29.3 pg (28.0-33.3); Mean Corpuscular Volume 91.7 fL (83.0-100.0); Mean Platelet Volume 9.4 fL (9.4-12.4); Platelet Count 115 K/mcL (140-400); Red Cell Distribution Width 20.6 % (11.5-14.5)
[2019-05-20 03:40] LABS: Albumin 1.9 g/dL (3.5-5.7); Albumin/Globulin Ratio 0.6 (1.1-2.2); Bilirubin,Direct 1.7 mg/dL (0.0-0.2); Bilirubin,Indirect 0.8 mg/dL (0.0-1.0); Bilirubin,Total 2.5 mg/dL (0.3-1.0); Calcium 7.1 mg/dL (8.6-10.3); Globulin 3.3 g/dL (2.4-3.5); Potassium 3.9 mEq/L (3.5-5.1); Total Protein 5.2 g/dL (6.4-8.9)
[2019-05-20] MEDS: Ipratropium/Albuterol Neb 3 ML IH SCH ×4 (03:44→22:38)
[2019-05-20] MEDS: *HR* Heparin 5,000 UNIT/ML VIAL SQ SCH ×2 (06:01→17:54)
[2019-05-20] MEDS: Famotidine 20 MG TABLET PO SCH ×2 (06:18→17:55)
[2019-05-20] MEDS: D5% in 0.9% NACL 1,000 ML IVC SCH (06:19)
[2019-05-20] MEDS ORDERED: Simethicone 80 MG TAB.CHEW PO ONE (09:21)
[2019-05-20] MEDS: Cholestyramine 4 GM POWD.PACK PO SCH ×2 (09:46→21:24)
[2019-05-20] MEDS: Insulin LISPRO 300 UNITS/3 ML VIAL SQ SCH ×3 (10:14→17:56)
[2019-05-20] MEDS: Erythromycin OPTH Oint BOTH EYES SCH (10:14)
[2019-05-20] MEDS: Lactobacillus 1 EACH CAP.SPRINK PO SCH ×2 (10:14→21:24)
[2019-05-20] MEDS: Aspirin 81 MG TAB.CHEW PO SCH (10:14)
[2019-05-20] MEDS: Metoprolol XL (24 HR) Succ 50 MG TAB.ER.24H PO SCH (10:15)
[2019-05-20 17:13] LABS: ANA HEp-2 IgG IFA DETECTED (<1:80); Anti Nuclear Ab Pattern SPECKLED
[2019-05-20] MEDS ORDERED: 0.9 % Sodium Chloride 1,000 ML IV ONE (17:27)
[2019-05-20 18:20] LABS: Basophils % 0.4 %; Eosinophils # 0.3 K/mcL (0.0-0.6); Eosinophils % 3.2 %; Hematocrit 27.1 % (37.5-50.1); Hemoglobin 8.8 g/dL (12.9-16.9); Immature Granulocytes % 0.7 % (0-4); Lymphocytes # 1.3 K/mcL (0.6-4.6); Lymphocytes % 15.5 %; Mean Corpuscular HGB Conc 32.5 g/dL (31.6-35.5); Mean Corpuscular Volume 89.4 fL (83.0-100.0); Mean Platelet Volume 9.7 fL (9.4-12.4); Monocytes # 0.4 K/mcL (0.0-1.3); Neutrophils # 6.3 K/mcL (1.6-8.9); Platelet Count 124 K/mcL (140-400); Red Blood Count 3.03 M/mcL (4.19-5.50); Red Cell Distribution Width 20.7 % (11.5-14.5); Segmented Neutrophils % 75.2 %; White Blood Count 8.4 K/mcL (4.3-11.1)
[2019-05-20 18:39] LABS: Albumin 1.8 g/dL (3.5-5.7); Albumin/Globulin Ratio 0.5 (1.1-2.2); Bilirubin,Total 2.7 mg/dL (0.3-1.0); Calcium 7.1 mg/dL (8.6-10.3); Globulin 3.4 g/dL (2.4-3.5); Magnesium 1.9 mg/dL (1.6-2.6); Potassium 3.9 mEq/L (3.5-5.1); Total Protein 5.2 g/dL (6.4-8.9)
[2019-05-20] MEDS ORDERED: 0.9 % Sodium Chloride 500 ML ONE (21:12)
[2019-05-20] MEDS: Piperacillin/Tazobactam 3.375 GM in 0.9 % Sodium Chloride Mini Bag 100 ML IVPB SCH (22:12)
[2019-05-21] MEDS: Ipratropium/Albuterol Neb 3 ML IH SCH ×4 (04:11→21:43)
[2019-05-21] MEDS: D5% in 0.9% NACL 1,000 ML IVC SCH ×2 (04:16→19:14)
[2019-05-21] MEDS: Piperacillin/Tazobactam 3.375 GM in 0.9 % Sodium Chloride Mini Bag 100 ML IVPB SCH (05:04)
[2019-05-21] MEDS: *HR* Heparin 5,000 UNIT/ML VIAL SQ SCH ×2 (05:04→18:11)
[2019-05-21] MEDS ORDERED: Aminoglycoside Consult 1 EACH MC ONE (07:34)
[2019-05-21] MEDS ORDERED: Piperacillin/Tazobactam 3.375 GM in 0.9 % Sodium Chloride Mini Bag 100 ML IVPB SCH (08:00)
[2019-05-21] MEDS: Aspirin 81 MG TAB.CHEW PO SCH (08:05)
[2019-05-21] MEDS: Lactobacillus 1 EACH CAP.SPRINK PO SCH ×2 (08:05→20:30)
[2019-05-21] MEDS: Cholestyramine 4 GM POWD.PACK PO SCH ×3 (08:05→20:30)
[2019-05-21] MEDS: Metoprolol XL (24 HR) Succ 50 MG TAB.ER.24H PO SCH (08:06)
[2019-05-21] MEDS: Famotidine 20 MG TABLET PO SCH ×2 (08:06→18:12)
[2019-05-21] MEDS: Insulin LISPRO 300 UNITS/3 ML VIAL SQ SCH ×3 (08:19→17:37)
[2019-05-21] MEDS: Erythromycin OPTH Oint BOTH EYES SCH (11:04)
[2019-05-21 11:59] LABS: BUN/Creatinine Ratio 9 (6-26); Blood Urea Nitrogen 20 mg/dL (8-23); eGFR For African Americans 35 (> 60); eGFR For Non-African Americans 29 (> 60)
[2019-05-21 14:43] LABS: Albumin 1.8 g/dL (3.5-5.7); Albumin/Globulin Ratio 0.6 (1.1-2.2); Bilirubin,Total 2.9 mg/dL (0.3-1.0); Calcium 6.8 mg/dL (8.6-10.3); Globulin 3.1 g/dL (2.4-3.5); Potassium 4.4 mEq/L (3.5-5.1); Total Protein 4.9 g/dL (6.4-8.9)
[2019-05-21] MEDS: Lidocaine Jelly 6ml 1 APPL/6 ML JEL.PF.APP TP SCH (16:18)
[2019-05-21] MEDS: Sennosides/Docusate Sodium TABLET PO SCH (20:30)
[2019-05-21] MEDS: Lactulose Oral Soln 20 GM/30 ML UDC PO SCH (20:48)
[2019-05-22] MEDS: Albumin 25% 25gram/100mL 25 GM/100 ML IV.SOLN IVPB SCH ×5 (01:30→23:53)
[2019-05-22] MEDS: Ipratropium/Albuterol Neb 3 ML IH SCH ×4 (03:40→21:00)
[2019-05-22 05:29] LABS: Basophils # 0.1 K/mcL (0.0-0.2); Basophils % 0.4 %; Eosinophils # 0.5 K/mcL (0.0-0.6); Eosinophils % 3.8 %; Hematocrit 27.5 % (37.5-50.1); Hemoglobin 8.8 g/dL (12.9-16.9); Immature Granulocytes % 0.9 % (0-4); Lymphocytes # 1.2 K/mcL (0.6-4.6); Lymphocytes % 8.6 %; Mean Corpuscular Hemoglobin 29.1 pg (28.0-33.3); Mean Corpuscular Volume 91.1 fL (83.0-100.0); Mean Platelet Volume 9.5 fL (9.4-12.4); Monocytes # 0.4 K/mcL (0.0-1.3); Monocytes % 3.1 %; Neutrophils # 11.6 K/mcL (1.6-8.9); Platelet Count 117 K/mcL (140-400); Red Blood Count 3.02 M/mcL (4.19-5.50); Red Cell Distribution Width 21.2 % (11.5-14.5); Segmented Neutrophils % 83.2 %
[2019-05-22 05:44] LABS: White Blood Count 13.9 K/mcL (4.3-11.1)
[2019-05-22 05:45] LABS: Albumin 2.1 g/dL (3.5-5.7); Albumin/Globulin Ratio 0.7 (1.1-2.2); Bilirubin,Total 3.5 mg/dL (0.3-1.0); Calcium 6.9 mg/dL (8.6-10.3); Globulin 2.9 g/dL (2.4-3.5); Potassium 4.1 mEq/L (3.5-5.1)
[2019-05-22 06:08] LABS: Platelet Estimate Decreased (Normal)
[2019-05-22] MEDS: Aspirin 81 MG TAB.CHEW PO SCH (06:49)
[2019-05-22] MEDS: Famotidine 20 MG TABLET PO SCH ×2 (06:50→17:16)
[2019-05-22] MEDS: *HR* Heparin 5,000 UNIT/ML VIAL SQ SCH (06:54)
[2019-05-22] MEDS: Lactulose Oral Soln 20 GM/30 ML UDC PO SCH ×3 (08:13→22:12)
[2019-05-22] MEDS: Metoprolol XL (24 HR) Succ 50 MG TAB.ER.24H PO SCH (08:13)
[2019-05-22] MEDS: Lactobacillus 1 EACH CAP.SPRINK PO SCH ×2 (08:14→22:12)
[2019-05-22] MEDS: Sennosides/Docusate Sodium TABLET PO SCH ×2 (08:15→22:11)
[2019-05-22] MEDS: Cholestyramine 4 GM POWD.PACK PO SCH ×2 (08:15→22:11)
[2019-05-22] MEDS: Insulin LISPRO 300 UNITS/3 ML VIAL SQ SCH ×3 (08:17→16:56)
[2019-05-22] MEDS: *HR* HYDROcodone/Acet 5/325 mg TABLET PO PRN (10:47)
[2019-05-22] MEDS ORDERED: *HR* Phytonadione 5 MG TABLET PO ONE (11:53)
[2019-05-22] MEDS: Erythromycin OPTH Oint BOTH EYES SCH (12:38)
[2019-05-22 14:25] LABS: F-Actin (sm muscle) Ab IgG 43 Units (0-19)
[2019-05-22] MEDS: Lidocaine Jelly 6ml 1 APPL/6 ML JEL.PF.APP TP SCH (15:30)
[2019-05-22 18:54] LABS: Albumin 2.4 g/dL (3.5-5.7); Albumin/Globulin Ratio 0.9 (1.1-2.2); Bilirubin,Total 4.1 mg/dL (0.3-1.0); Globulin 2.8 g/dL (2.4-3.5); Potassium 3.7 mEq/L (3.5-5.1); Total Protein 5.2 g/dL (6.4-8.9)
[2019-05-22 18:58] LABS: INR 2.7; Prothrombin Time 30.9 Seconds (9.4-12.1)
[2019-05-22] MEDS: D5% in 0.9% NACL 1,000 ML IVC SCH ×2 (19:02→19:31)
[2019-05-22 20:37] LABS: Prothrombin Time 26.9 Seconds (9.4-12.1)
[2019-05-22 20:38] LABS: INR 2.4
[2019-05-22 20:40] LABS: INR 2.3
[2019-05-23 01:37] LABS: Basophils % 0.3 %; Eosinophils % 4.4 %; Lymphocytes % 10.9 %; Mean Platelet Volume 10.4 fL (9.4-12.4)
[2019-05-23 01:39] LABS: Eosinophils # 0.5 K/mcL (0.0-0.6); Hematocrit 28.9 % (37.5-50.1); Hemoglobin 8.9 g/dL (12.9-16.9); Immature Granulocytes % 0.7 % (0-4); Immature Platelets 3.4 % (1.1-6.1); Lymphocytes # 1.3 K/mcL (0.6-4.6); Mean Corpuscular HGB Conc 30.8 g/dL (31.6-35.5); Mean Corpuscular Hemoglobin 28.9 pg (28.0-33.3); Mean Corpuscular Volume 93.8 fL (83.0-100.0); Monocytes # 0.3 K/mcL (0.0-1.3); Monocytes % 2.9 %; Neutrophils # 9.3 K/mcL (1.6-8.9); Red Blood Count 3.08 M/mcL (4.19-5.50); Red Cell Distribution Width 21.5 % (11.5-14.5); Segmented Neutrophils % 80.8 %; White Blood Count 11.5 K/mcL (4.3-11.1)
[2019-05-23 01:49] LABS: Albumin 2.7 g/dL (3.5-5.7); Albumin/Globulin Ratio 0.9 (1.1-2.2); Bilirubin,Total 4.9 mg/dL (0.3-1.0); Calcium 7.2 mg/dL (8.6-10.3); Potassium 4.1 mEq/L (3.5-5.1); Total Protein 5.7 g/dL (6.4-8.9)
[2019-05-23 02:21] LABS: Platelet Count 85 K/mcL (140-400)
[2019-05-23 02:22] LABS: Anisocytosis 2+ (Not Present); Hypochromasia Present (Not Present); Platelet Estimate Normal (Normal)
[2019-05-23] MEDS: Ipratropium/Albuterol Neb 3 ML IH SCH ×4 (03:26→22:12)
[2019-05-23] MEDS: Albumin 25% 25gram/100mL 25 GM/100 ML IV.SOLN IVPB SCH ×3 (06:02→17:22)
[2019-05-23] MEDS ORDERED: Acetylcysteine 15,000 MG in D5% in Water 250 ML IVC ONE (07:12)
[2019-05-23] MEDS: D5% in 0.9% NACL 1,000 ML IVC SCH ×2 (08:04→14:42)
[2019-05-23] MEDS: Insulin LISPRO 300 UNITS/3 ML VIAL SQ SCH ×3 (08:09→16:56)
[2019-05-23] MEDS: Lidocaine Jelly 6ml 1 APPL/6 ML JEL.PF.APP TP SCH (08:10)
[2019-05-23] MEDS: Metoprolol XL (24 HR) Succ 50 MG TAB.ER.24H PO SCH (08:10)
[2019-05-23] MEDS: Lactulose Oral Soln 20 GM/30 ML UDC PO SCH ×3 (08:10→21:08)
[2019-05-23] MEDS: Lactobacillus 1 EACH CAP.SPRINK PO SCH ×2 (08:10→21:08)
[2019-05-23] MEDS: Aspirin 81 MG TAB.CHEW PO SCH (08:11)
[2019-05-23] MEDS: Sennosides/Docusate Sodium TABLET PO SCH ×2 (08:11→21:08)
[2019-05-23] MEDS: Erythromycin OPTH Oint BOTH EYES SCH (08:12)
[2019-05-23 10:57] LABS: INR 2.7; Prothrombin Time 30.7 Seconds (9.4-12.1)
[2019-05-23] MEDS ORDERED: Acetylcysteine 5,000 MG in D5% in Water 500 ML IVC ONE (11:00)
[2019-05-23 13:50] LABS: Smooth Muscle Ab Titer IgG 1:40 (<1:20)
[2019-05-23] MEDS ORDERED: Acetylcysteine 10,000 MG in D5% in Water 1,000 ML IVC ONE (15:00)
[2019-05-24] MEDS: Albumin 25% 25gram/100mL 25 GM/100 ML IV.SOLN IVPB SCH (01:41)
[2019-05-24 03:39] VITALS: BP 113/52
[2019-05-24 03:47] LABS: Albumin 2.8 g/dL (3.5-5.7); Albumin/Globulin Ratio 1.2 (1.1-2.2); Bilirubin,Total 4.6 mg/dL (0.3-1.0); Calcium 7.2 mg/dL (8.6-10.3); Globulin 2.3 g/dL (2.4-3.5); Potassium 3.3 mEq/L (3.5-5.1); Total Protein 5.1 g/dL (6.4-8.9)
[2019-05-24] MEDS: Ipratropium/Albuterol Neb 3 ML IH SCH (04:06)
[2019-05-24 05:27] LABS: Basophils % 0.3 %; Eosinophils # 0.3 K/mcL (0.0-0.6); Eosinophils % 3.3 %; Hematocrit 22.1 % (37.5-50.1); Hemoglobin 7.2 g/dL (12.9-16.9); Immature Granulocytes % 0.7 % (0-4); Lymphocytes # 1.5 K/mcL (0.6-4.6); Lymphocytes % 16.6 %; Mean Corpuscular HGB Conc 32.6 g/dL (31.6-35.5); Mean Corpuscular Hemoglobin 29.1 pg (28.0-33.3); Mean Corpuscular Volume 89.5 fL (83.0-100.0); Mean Platelet Volume 10.1 fL (9.4-12.4); Monocytes # 0.4 K/mcL (0.0-1.3); Monocytes % 4.9 %; Neutrophils # 6.7 K/mcL (1.6-8.9); Red Blood Count 2.47 M/mcL (4.19-5.50); Red Cell Distribution Width 20.4 % (11.5-14.5); Segmented Neutrophils % 74.2 %
[2019-05-24 05:28] LABS: Platelet Count 95 K/mcL (140-400)
[2019-05-24 05:55] LABS: Platelet Estimate Decreased (Normal)
[2019-05-24] MEDS: D5% in 0.9% NACL 1,000 ML IVC SCH (06:10)
== END 2019-05-24 07:45 | disposition short-term general hospital (02) | DRG 441 ==
LOC: EMEROOARM 20:07 → 3BNU 20:07 → SUATTDRO 05-15 16:46 → 2NNU 05-20 20:08
PROVIDERS: ADMIT Internal Medicine; ATTEND Internal Medicine

== ENCOUNTER 2020-07-05 13:12 | Inpatient (IN) ==
[2020-07-05 13:54] LABS: Basophils # 0.1 K/mcL (0.0-0.2); Basophils % 0.9 %; Eosinophils # 0.8 K/mcL (0.0-0.6); Eosinophils % 11.4 %; Hematocrit 30.4 % (37.5-50.1); Immature Granulocytes % 0.3 % (0-4); Lymphocytes # 0.7 K/mcL (0.6-4.6); Lymphocytes % 9.6 %; Mean Corpuscular HGB Conc 29.6 g/dL (31.6-35.5); Mean Corpuscular Hemoglobin 29.1 pg (28.0-33.3); Mean Corpuscular Volume 98.4 fL (83.0-100.0); Mean Platelet Volume 9.5 fL (9.4-12.4); Monocytes # 0.8 K/mcL (0.0-1.3); Monocytes % 11.4 %; Neutrophils # 4.6 K/mcL (1.6-8.9); Platelet Count 164 K/mcL (140-400); Red Blood Count 3.09 M/mcL (4.19-5.50); Red Cell Distribution Width 14.5 % (11.5-14.5); Segmented Neutrophils % 66.4 %; White Blood Count 6.9 K/mcL (4.3-11.1)
[2020-07-05] MEDS ORDERED: Furosemide 40 MG/4 ML VIAL IVP ONE (14:29)
[2020-07-05 14:34] LABS: BUN/Creatinine Ratio 13 (6-26); Blood Urea Nitrogen 47 mg/dL (8-23); Calcium 9.2 mg/dL (8.6-10.3); Carbon Dioxide 23 mEq/L (23-29); Chloride 107 mEq/L (98-107); Glucose 134 mg/dL (70-105); Osmolality,Calculated 300 (280-300); Potassium 4.6 mEq/L (3.5-5.1); Sodium 138 mEq/L (136-145); Troponin I < 0.03 ng/mL (< 0.04); eGFR For African Americans 21 (> 60); eGFR For Non-African Americans 17 (> 60)
[2020-07-05] MEDS ORDERED: Naloxone 0.4 MG/ML INJ IVP PRN (16:11)
[2020-07-05] MEDS ORDERED: Perflutren Lipid Microsphere 1.3 ML in 0.9 % Sodium Chloride 8.7 ML IVP PRN (16:56)
[2020-07-05] MEDS: Furosemide 40 MG in 0.9 % Sodium Chloride 50 ML IV SCH (20:44)
[2020-07-06 01:35] LABS: Hematocrit 28.3 % (37.5-50.1); Hemoglobin 8.7 g/dL (12.9-16.9); Mean Corpuscular HGB Conc 30.7 g/dL (31.6-35.5); Mean Corpuscular Hemoglobin 30.1 pg (28.0-33.3); Mean Corpuscular Volume 97.9 fL (83.0-100.0); Mean Platelet Volume 9.7 fL (9.4-12.4); Platelet Count 151 K/mcL (140-400); Red Blood Count 2.89 M/mcL (4.19-5.50); Red Cell Distribution Width 14.4 % (11.5-14.5); White Blood Count 6.5 K/mcL (4.3-11.1)
[2020-07-06 01:55] LABS: Albumin 3.7 g/dL (3.5-5.7); Bilirubin,Total 0.5 mg/dL (0.3-1.0); Calcium 9.2 mg/dL (8.6-10.3); Chol/HDL Ratio 2.9 (0-4.9); Globulin 3.7 g/dL (2.4-3.5); Magnesium 2.6 mg/dL (1.6-2.6); Phosphorous 4.8 mg/dL (2.7-4.5); Potassium 4.3 mEq/L (3.5-5.1); Total Protein 7.4 g/dL (6.4-8.9)
[2020-07-06] MEDS ORDERED: Famotidine 20 MG TABLET PO SCH ×2 (09:00→21:00)
[2020-07-06] MEDS: *HR* Rivaroxaban 15 MG TABLET PO SCH (11:27)
[2020-07-06] MEDS: Aspirin Enteric Coated 81 MG Tablet PO SCH (11:27)
[2020-07-06] MEDS: Furosemide 40 MG in 0.9 % Sodium Chloride 50 ML IV SCH (11:28)
[2020-07-06] MEDS: metOLazone 2.5 MG TABLET PO SCH (19:02)
[2020-07-06] MEDS ORDERED: Mirtazapine 15 MG TABLET PO SCH (21:00)
[2020-07-06] MEDS: Furosemide 40 MG/4 ML VIAL IVP SCH (21:05)
[2020-07-06 22:34] LABS: Bilirubin,Urine Negative (Negative); Blood,Urine Trace (Negative); Clarity,Urine Clear (Clear); Color,Urine Colorless (Yellow); Glucose,Urine (UA) Normal (Normal); Ketones,Urine Negative (Negative); Leukocyte Esterase,Urine Large (Negative); Nitrite,Urine Negative (Negative); Protein,Urine Trace mg/dL (Neg-Trace); Specific Gravity,Urine 1.008 (1.010-1.025); Urobilinogen,Urine Normal (Normal)
[2020-07-06 22:43] LABS: Protein/Creatinine Ratio,Urine 1.26 mg/mg (0.00-0.20)
[2020-07-07 03:02] LABS: % Iron Saturation 9 % (20-55); Calcium 9.2 mg/dL (8.6-10.3); Iron 41 mcg/dL (65-175); Potassium 4.4 mEq/L (3.5-5.1); Transferrin 320 mg/dL (203-362)
[2020-07-07 03:29] LABS: Folate > 22.3 ng/mL (3.0-16.0); Vitamin B12 466 pg/mL (250-1100)
[2020-07-07 03:55] LABS: Hematocrit 28.2 % (37.5-50.1); Hemoglobin 8.7 g/dL (12.9-16.9); Mean Corpuscular HGB Conc 30.9 g/dL (31.6-35.5); Mean Corpuscular Hemoglobin 29.1 pg (28.0-33.3); Mean Corpuscular Volume 94.3 fL (83.0-100.0); Mean Platelet Volume 10.1 fL (9.4-12.4); Platelet Count 157 K/mcL (140-400); Red Blood Count 2.99 M/mcL (4.19-5.50); Red Cell Distribution Width 14.3 % (11.5-14.5); White Blood Count 6.3 K/mcL (4.3-11.1)
[2020-07-07] MEDS: Aspirin Enteric Coated 81 MG Tablet PO SCH (09:01)
[2020-07-07] MEDS: *HR* Rivaroxaban 15 MG TABLET PO SCH (09:01)
[2020-07-07] MEDS: metOLazone 2.5 MG TABLET PO SCH (09:02)
[2020-07-07] MEDS: Furosemide 40 MG/4 ML VIAL IVP SCH (09:02)
[2020-07-07 11:00] VITALS: BP 139/88
== END 2020-07-07 16:50 | disposition home or self-care (01) | DRG 291 ==
LOC: 2ANU 13:12 → EMEROOARM 13:12 → 2ANU 16:47 → SUATTDRO 07-06 15:45
PROVIDERS: ADMIT Internal Medicine; ATTEND Student in an Organized Health Care Education/Training Program

== ENCOUNTER 2020-08-22 20:08 | Inpatient (IN) ==
[2020-08-22 21:09] LABS: Bacteria,Urine Few per hpf (None-Few); Bilirubin,Urine Negative (Negative); Blood,Urine Trace (Negative); Clarity,Urine Turbid (Clear); Color,Urine Light-Yellow (Yellow); Glucose,Urine (UA) 200 mg/dL (Normal); Ketones,Urine Negative (Negative); Leukocyte Esterase,Urine Large (Negative); Mucus,Urine Few per lpf (None-Few); Nitrite,Urine Negative (Negative); Protein,Urine 30 mg/dL (Neg-Trace); Specific Gravity,Urine 1.014 (1.010-1.025); Squamous Epithelial Cell,Urine Few per hpf (None-Few); Urobilinogen,Urine Normal (Normal); WBC,Urine TNTC per hpf (0-3)
[2020-08-22 21:48] LABS: Alanine Aminotransferase 9 Units/L (7-52); Albumin 3.7 g/dL (3.5-5.7); Albumin/Globulin Ratio 1.1 (1.1-2.2); Alkaline Phosphatase 64 Units/L (34-104); Aspartate Amino Transferase 13 Units/L (13-39); Bilirubin,Direct 0.1 mg/dL (0.0-0.2); Bilirubin,Indirect 0.3 mg/dL (0.0-1.0); Bilirubin,Total 0.4 mg/dL (0.3-1.0); Blood Urea Nitrogen > 130 mg/dL (8-23); Calcium 9.3 mg/dL (8.6-10.3); Carbon Dioxide 23 mEq/L (23-29); Chloride 103 mEq/L (98-107); Globulin 3.4 g/dL (2.4-3.5); Glucose 270 mg/dL (70-105); Lipase 61 Units/L (11-82); Potassium 4.1 mEq/L (3.5-5.1); Sodium 139 mEq/L (136-145); Total Protein 7.1 g/dL (6.4-8.9); Troponin I < 0.03 ng/mL (< 0.04); eGFR For African Americans 17 (> 60); eGFR For Non-African Americans 14 (> 60)
[2020-08-22 22:04] LABS: INR 1.6; Prothrombin Time 18.7 Seconds (9.4-12.1)
[2020-08-22] MEDS ORDERED: 0.9 % Sodium Chloride 500 ML ONE (22:14)
[2020-08-22 22:22] LABS: Basophils % 0.2 %; Eosinophils # 0.1 K/mcL (0.0-0.6); Eosinophils % 0.8 %; Immature Granulocytes % 1.1 % (0-4); Lymphocytes # 0.7 K/mcL (0.6-4.6); Lymphocytes % 7.4 %; Mean Corpuscular HGB Conc 29.3 g/dL (31.6-35.5); Mean Corpuscular Hemoglobin 29.8 pg (28.0-33.3); Mean Corpuscular Volume 101.7 fL (83.0-100.0); Mean Platelet Volume 10.7 fL (9.4-12.4); Monocytes # 0.8 K/mcL (0.0-1.3); Monocytes % 8.8 %; Neutrophils # 7.7 K/mcL (1.6-8.9); Nucleated Red Blood Cells 0.4 /100 WBC (0); Platelet Count 187 K/mcL (140-400); Red Blood Count 1.21 M/mcL (4.19-5.50); Red Cell Distribution Width 18.6 % (11.5-14.5); Segmented Neutrophils % 81.7 %; White Blood Count 9.4 K/mcL (4.3-11.1)
[2020-08-22 22:27] LABS: Hematocrit 12.3 % (37.5-50.1); Hemoglobin 3.6 g/dL (12.9-16.9)
[2020-08-22] MEDS ORDERED: Pantoprazole 80 MG in 0.9 % Sodium Chloride 50 ML IVPB ONE (22:47)
[2020-08-22] MEDS ORDERED: levoFLOXacin 750 MG/150 ML 750 MG/150 ML BAG IVPB ONE (22:50)
[2020-08-23] MEDS ORDERED: Dextrose Gel 15 GM/37.5 ML TUBE PO PRN ×2 (01:00)
[2020-08-23] MEDS ORDERED: D5% in Water 1,000 ML IVC PRN (01:00)
[2020-08-23] MEDS ORDERED: *HR* Dextrose 50 % in Water (Vial) 50 ML VIAL IVP PRN (01:00)
[2020-08-23] MEDS ORDERED: 0.9 % Sodium Chloride 250 ML ONE ×3 (02:11→15:26)
[2020-08-23] MEDS: Pantoprazole 40 MG VIAL IVP SCH ×2 (02:24→14:07)
[2020-08-23] MEDS: Ondansetron 4 MG/2 ML VIAL IVP PRN ×2 (02:31→10:33)
[2020-08-23 06:34] LABS: Mean Corpuscular Hemoglobin 29.7 pg (28.0-33.3); Mean Corpuscular Volume 98.8 fL (83.0-100.0); Mean Platelet Volume 9.9 fL (9.4-12.4); Platelet Count 181 K/mcL (140-400); Red Blood Count 1.72 M/mcL (4.19-5.50); White Blood Count 9.1 K/mcL (4.3-11.1)
[2020-08-23 06:39] LABS: Hemoglobin 5.1 g/dL (12.9-16.9)
[2020-08-23 07:01] LABS: Blood Urea Nitrogen > 130 mg/dL (8-23); Calcium 9.1 mg/dL (8.6-10.3); Carbon Dioxide 24 mEq/L (23-29); Chloride 107 mEq/L (98-107); Glucose 203 mg/dL (70-105); Potassium 4.3 mEq/L (3.5-5.1); Sodium 143 mEq/L (136-145); eGFR For African Americans 17 (> 60); eGFR For Non-African Americans 14 (> 60)
[2020-08-23] MEDS: Insulin LISPRO 300 UNITS/3 ML VIAL SUBQ SCH ×3 (08:03→17:01)
[2020-08-23 09:12] LABS: Adenovirus Not Detected (Not Detect); Bordetella Pertussis Not Detected (Not Detect); Chlamydophila pneumoniae Not Detected (Not Detect); Coronavirus 229E Not Detected (Not Detect); Coronavirus HKU1 Not Detected (Not Detect); Coronavirus NL63 Not Detected (Not Detect); Coronavirus OC43 Not Detected (Not Detect); Human Metapneumovirus Not Detected (Not Detect); Human Rhinovirus/Enterovirus Not Detected (Not Detect); Influenza A Subtype 2009 H1 Not Detected (Not Detect); Influenza B Not Detected (Not Detect); Mycoplasma pneumoniae Not Detected (Not Detect); Parainfluenza Virus 1 Not Detected (Not Detect); Parainfluenza Virus 2 Not Detected (Not Detect); Parainfluenza Virus 3 Not Detected (Not Detect); Parainfluenza Virus 4 Not Detected (Not Detect); Respiratory Syncytial Virus Not Detected (Not Detect); SARS-CoV-2 Not Detected (Not Detect)
[2020-08-23 10:02] LABS: Creatine Kinase 71 Units/L (30-223); Uric Acid 11.4 mg/dL (2.3-7.6)
[2020-08-23] MEDS ORDERED: *HR* Vasopressin 20 UNIT/ML VIAL ONE (10:33)
[2020-08-23] MEDS: Scopolamine Patch 1.5 MG PATCH.TD72 TD SCH (13:58)
[2020-08-23 16:50] LABS: Protein/Creatinine Ratio,Urine 1.23 mg/mg (0.00-0.20)
[2020-08-23] MEDS: Mirtazapine 15 MG TABLET PO SCH (20:11)
[2020-08-23 23:08] LABS: Hematocrit 21.3 % (37.5-50.1); Hemoglobin 6.4 g/dL (12.9-16.9)
[2020-08-24] MEDS: Insulin LISPRO 300 UNITS/3 ML VIAL SUBQ SCH ×5 (00:28→22:15)
[2020-08-24] MEDS ORDERED: 0.9 % Sodium Chloride 250 ML ONE ×3 (00:50→13:59)
[2020-08-24 01:01] LABS: Basophils % 0.5 %; Eosinophils # 0.2 K/mcL (0.0-0.6); Eosinophils % 2.6 %; Hematocrit 20.5 % (37.5-50.1); Hemoglobin 6.3 g/dL (12.9-16.9); Immature Granulocytes % 0.9 % (0-4); Lymphocytes # 0.8 K/mcL (0.6-4.6); Lymphocytes % 9.8 %; Mean Corpuscular HGB Conc 30.7 g/dL (31.6-35.5); Mean Corpuscular Hemoglobin 29.7 pg (28.0-33.3); Mean Corpuscular Volume 96.7 fL (83.0-100.0); Mean Platelet Volume 9.9 fL (9.4-12.4); Monocytes # 0.8 K/mcL (0.0-1.3); Monocytes % 10.7 %; Neutrophils # 5.8 K/mcL (1.6-8.9); Nucleated Red Blood Cells 0.9 /100 WBC (0); Platelet Count 163 K/mcL (140-400); Red Blood Count 2.12 M/mcL (4.19-5.50); Segmented Neutrophils % 75.5 %; White Blood Count 7.7 K/mcL (4.3-11.1)
[2020-08-24 01:22] LABS: Blood Urea Nitrogen > 130 mg/dL (8-23); Calcium 8.8 mg/dL (8.6-10.3); Carbon Dioxide 26 mEq/L (23-29); Chloride 105 mEq/L (98-107); Glucose 174 mg/dL (70-105); Potassium 4.2 mEq/L (3.5-5.1); Sodium 142 mEq/L (136-145); eGFR For African Americans 17 (> 60); eGFR For Non-African Americans 14 (> 60)
[2020-08-24] MEDS: Pantoprazole 40 MG VIAL IVP SCH ×2 (02:46→14:31)
[2020-08-24 03:09] LABS: Hepatitis B Surface Antigen Nonreactive (Nonreactive)
[2020-08-24 03:37] LABS: Hepatitis B Core IgM Nonreactive (Nonreactive)
[2020-08-24 03:39] LABS: Hepatitis A Antibody IgM Nonreactive (Nonreactive); Hepatitis C Virus Antibody Nonreactive (Nonreactive)
[2020-08-24 09:53] LABS: Hematocrit 23.6 % (37.5-50.1); Hemoglobin 7.1 g/dL (12.9-16.9)
[2020-08-24] MEDS: 0.9 % Sodium Chloride 1,000 ML IVC SCH ×2 (11:20→21:49)
[2020-08-24] MEDS ORDERED: *HR* Propofol 200 MG/20 ML VIAL IVP ONE ×2 (17:58→19:14)
[2020-08-24] MEDS ORDERED: Lidocaine -MPF 2% 2 ML VIAL ONE (18:04)
[2020-08-24] MEDS ORDERED: *HR* PHENYLEPHRINE 1,000 MCG/10 ML SYRINGE IVP ONE (18:42)
[2020-08-24] MEDS ORDERED: 0.9 % Sodium Chloride 250 ML IVC SCH (20:15)
[2020-08-24 20:34] LABS: ABG Base Excess -3 mEq/L (-2 to 3); ABG Chloride 109 mEq/L (98-107); ABG Glucose 214 mg/dL (60-95); ABG HCO3 29 mEq/L (21-27); ABG Oxygen Saturation 100 % (95-98); ABG PCO2 106 mmHg (35-45); ABG PH 7.05 pH Units (7.32-7.45); ABG PO2 316 mmHg (85-104); ABG TCO2 32 mEq/L (20-26)
[2020-08-24] MEDS ORDERED: *HR* Midazolam HCl 2 MG/2 ML VIAL ONE (20:46)
[2020-08-24] MEDS ORDERED: Doxycycline 100 MG CAPSULE PO SCH (21:00)
[2020-08-24] MEDS: Mirtazapine 15 MG TABLET PO SCH (21:28)
[2020-08-24] MEDS: FentaNYL (PF) 1,000 MCG/100 ML IV.SOLN IVC SCH (21:33)
[2020-08-24 21:51] LABS: INR 1.2
[2020-08-24] MEDS ORDERED: Artificial Tears SOLN 15 ML BOTTLE BOTH EYES PRN (21:51)
[2020-08-24 22:06] LABS: Albumin 3.6 g/dL (3.5-5.7); Albumin/Globulin Ratio 1.1 (1.1-2.2); Bilirubin,Direct 0.2 mg/dL (0.0-0.2); Bilirubin,Indirect 0.2 mg/dL (0.0-1.0); Bilirubin,Total 0.4 mg/dL (0.3-1.0); Globulin 3.3 g/dL (2.4-3.5); Total Protein 6.9 g/dL (6.4-8.9)
[2020-08-24] MEDS: Chlorhexidine Rinse 15 ML MOUTHWASH MM SCH (22:15)
[2020-08-24 22:27] LABS: Hematocrit 26.5 % (37.5-50.1)
[2020-08-24 22:57] LABS: ABG Base Excess -1 mEq/L (-2 to 3); ABG HCO3 28 mEq/L (21-27); ABG Oxygen Saturation 84 % (95-98); ABG PCO2 74 mmHg (35-45); ABG PH 7.18 pH Units (7.32-7.45); ABG PO2 63 mmHg (85-104); ABG TCO2 30 mEq/L (20-26); Blood Gas Modality ASSIST CONTROL; Blood Gas VT 450 cc
[2020-08-24] MEDS: Furosemide 40 MG/4 ML VIAL IVP SCH (23:47)
[2020-08-24] MEDS: Artificial Tears SOLN 15 ML BOTTLE BOTH EYES SCH (23:47)
[2020-08-25] MEDS: Pantoprazole 40 MG VIAL IVP SCH ×2 (02:16→14:43)
[2020-08-25] MEDS: Insulin LISPRO 300 UNITS/3 ML VIAL SUBQ SCH ×7 (02:17→23:18)
[2020-08-25] MEDS: Artificial Tears SOLN 15 ML BOTTLE BOTH EYES SCH ×6 (04:18→23:13)
[2020-08-25 04:19] LABS: INR 1.2; Prothrombin Time 13.5 Seconds (9.4-12.1)
[2020-08-25 04:22] LABS: Activated Partial Thrombo Time 24.6 Seconds (26.0-36.0)
[2020-08-25 04:30] LABS: ABG Base Excess 0 mEq/L (-2 to 3); ABG HCO3 27 mEq/L (21-27); ABG Oxygen Saturation 91 % (95-98); ABG PCO2 53 mmHg (35-45); ABG PH 7.32 pH Units (7.32-7.45); ABG PO2 67 mmHg (85-104); ABG TCO2 29 mEq/L (20-26); Blood Gas Modality ASSIST CONTROL; Blood Gas VT 450 cc
[2020-08-25 04:35] LABS: Calcium 8.4 mg/dL (8.6-10.3); Magnesium 3.7 mg/dL (1.6-2.6); Phosphorous 6.6 mg/dL (2.7-4.5); Potassium 3.8 mEq/L (3.5-5.1)
[2020-08-25 04:36] LABS: VBG Ionized Calcium 1.12 mmol/L (1.15-1.35)
[2020-08-25 05:35] LABS: Basophils % 0.1 %; Eosinophils # 0.1 K/mcL (0.0-0.6); Eosinophils % 1.2 %; Hematocrit 23.3 % (37.5-50.1); Hemoglobin 7.3 g/dL (12.9-16.9); Immature Granulocytes % 0.4 % (0-4); Lymphocytes # 0.4 K/mcL (0.6-4.6); Lymphocytes % 5.2 %; Mean Corpuscular HGB Conc 31.3 g/dL (31.6-35.5); Mean Corpuscular Hemoglobin 30.2 pg (28.0-33.3); Mean Corpuscular Volume 96.3 fL (83.0-100.0); Mean Platelet Volume 9.7 fL (9.4-12.4); Monocytes # 0.7 K/mcL (0.0-1.3); Monocytes % 9.5 %; Neutrophils # 6.3 K/mcL (1.6-8.9); Nucleated Red Blood Cells 0.4 /100 WBC (0); Platelet Count 141 K/mcL (140-400); Red Blood Count 2.42 M/mcL (4.19-5.50); Segmented Neutrophils % 83.6 %; White Blood Count 7.5 K/mcL (4.3-11.1)
[2020-08-25] MEDS: Doxycycline 100 MG in 0.9 % Sodium Chloride Mini Bag 100 ML IVPB SCH ×2 (05:55→17:32)
[2020-08-25] MEDS: FentaNYL (PF) 1,000 MCG/100 ML IV.SOLN IVC SCH ×2 (06:12→15:19)
[2020-08-25] MEDS: Chlorhexidine Rinse 15 ML MOUTHWASH MM SCH ×2 (08:58→19:25)
[2020-08-25] MEDS: Furosemide 40 MG/4 ML VIAL IVP SCH ×2 (08:59→19:24)
[2020-08-25] MEDS ORDERED: cefTRIAXone 1,000 MG in Water for inj. (sterile) 10 ML IVP SCH (10:00)
[2020-08-25 10:21] LABS: Total Protein 6.5 g/dL (6.4-8.9)
[2020-08-25 10:22] LABS: Troponin I 0.03 ng/mL (< 0.04)
[2020-08-25] MEDS ORDERED: Albumin 25% 25gram/100mL 25 GM/100 ML IV.SOLN ONE (14:28)
[2020-08-25] MEDS: 0.9 % Sodium Chloride 1,000 ML IVC SCH (14:33)
[2020-08-25] MEDS ORDERED: Albumin 25% 25gram/100mL 25 GM/100 ML IV.SOLN IVPB ONE (14:33)
[2020-08-25 15:17] LABS: Total Protein,Pleural Fluid 2.6 g/dL
[2020-08-25 15:30] LABS: % Iron Saturation 4 % (20-55); Iron 16 mcg/dL (65-175); Transferrin 326 mg/dL (203-362)
[2020-08-25 16:05] LABS: Folate > 22.3 ng/mL (3.0-16.0); Vitamin B12 1058 pg/mL (250-1100)
[2020-08-25 18:21] LABS: Appearance of Pleural Fl Hazy (Clear)
[2020-08-25 18:23] LABS: Basophils,Pleural Fluid 0 %; Eosinophils,Pleural Fluid 0 %
[2020-08-25] MEDS: Mirtazapine 15 MG TABLET PO SCH (19:20)
[2020-08-26 01:51] LABS: Basophils % 0.3 %; Eosinophils # 0.2 K/mcL (0.0-0.6); Eosinophils % 2.2 %; Hematocrit 24.2 % (37.5-50.1); Hemoglobin 7.5 g/dL (12.9-16.9); Immature Granulocytes % 0.4 % (0-4); Lymphocytes # 0.4 K/mcL (0.6-4.6); Lymphocytes % 4.6 %; Mean Corpuscular Hemoglobin 29.2 pg (28.0-33.3); Mean Corpuscular Volume 94.2 fL (83.0-100.0); Mean Platelet Volume 10.1 fL (9.4-12.4); Monocytes # 0.4 K/mcL (0.0-1.3); Neutrophils # 6.7 K/mcL (1.6-8.9); Nucleated Red Blood Cells 0.3 /100 WBC (0); Platelet Count 149 K/mcL (140-400); Red Blood Count 2.57 M/mcL (4.19-5.50); Red Cell Distribution Width 16.2 % (11.5-14.5); Segmented Neutrophils % 87.5 %; White Blood Count 7.6 K/mcL (4.3-11.1)
[2020-08-26 02:10] LABS: Albumin 3.4 g/dL (3.5-5.7); Albumin/Globulin Ratio 1.1 (1.1-2.2); Bilirubin,Total 0.6 mg/dL (0.3-1.0); Calcium 8.3 mg/dL (8.6-10.3); Globulin 3.1 g/dL (2.4-3.5); Magnesium 3.3 mg/dL (1.6-2.6); Potassium 3.4 mEq/L (3.5-5.1); Total Protein 6.5 g/dL (6.4-8.9)
[2020-08-26] MEDS: FentaNYL (PF) 1,000 MCG/100 ML IV.SOLN IVC SCH (02:12)
[2020-08-26] MEDS: 0.9 % Sodium Chloride 1,000 ML IVC SCH ×2 (02:13→18:14)
[2020-08-26] MEDS: Artificial Tears SOLN 15 ML BOTTLE BOTH EYES SCH ×5 (04:29→21:14)
[2020-08-26] MEDS: Pantoprazole 40 MG VIAL IVP SCH ×2 (04:31→16:24)
[2020-08-26 04:34] LABS: ABG Base Excess 2 mEq/L (-2 to 3); ABG HCO3 27 mEq/L (21-27); ABG Oxygen Saturation 97 % (95-98); ABG PCO2 44 mmHg (35-45); ABG PH 7.39 pH Units (7.32-7.45); ABG PO2 92 mmHg (85-104); ABG TCO2 28 mEq/L (20-26); Blood Gas Modality ASSIST CONTROL; Blood Gas VT 480 cc
[2020-08-26] MEDS: Insulin LISPRO 300 UNITS/3 ML VIAL SUBQ SCH ×5 (05:29→21:10)
[2020-08-26] MEDS: Doxycycline 100 MG in 0.9 % Sodium Chloride Mini Bag 100 ML IVPB SCH ×2 (05:56→18:13)
[2020-08-26] MEDS: Chlorhexidine Rinse 15 ML MOUTHWASH MM SCH ×2 (07:58→21:04)
[2020-08-26] MEDS: Furosemide 40 MG/4 ML VIAL IVP SCH ×2 (08:15→21:04)
[2020-08-26] MEDS: Scopolamine Patch 1.5 MG PATCH.TD72 TD SCH (11:25)
[2020-08-26] MEDS ORDERED: Iron Sucrose Complex 200 MG in 0.9 % Sodium Chloride 100 ML IVPB ONE (11:56)
[2020-08-26 17:17] LABS: Hemoglobin 8.3 g/dL (12.9-16.9)
[2020-08-26 17:25] LABS: Calcium 8.4 mg/dL (8.6-10.3)
[2020-08-26] MEDS: Mirtazapine 15 MG TABLET PO SCH (21:05)
[2020-08-27] MEDS: Artificial Tears SOLN 15 ML BOTTLE BOTH EYES SCH ×3 (01:42→08:17)
[2020-08-27] MEDS: Pantoprazole 40 MG VIAL IVP SCH (01:42)
[2020-08-27] MEDS: Insulin LISPRO 300 UNITS/3 ML VIAL SUBQ SCH ×4 (02:55→19:51)
[2020-08-27] MEDS: 0.9 % Sodium Chloride 1,000 ML IVC SCH ×2 (03:47→19:53)
[2020-08-27 04:20] LABS: Basophils % 0.1 %; Eosinophils % 0.3 %; Hematocrit 28.3 % (37.5-50.1); Hemoglobin 8.3 g/dL (12.9-16.9); Immature Granulocytes % 0.6 % (0-4); Lymphocytes # 0.2 K/mcL (0.6-4.6); Lymphocytes % 2.1 %; Mean Corpuscular HGB Conc 29.3 g/dL (31.6-35.5); Mean Corpuscular Hemoglobin 29.1 pg (28.0-33.3); Mean Corpuscular Volume 99.3 fL (83.0-100.0); Mean Platelet Volume 10.2 fL (9.4-12.4); Monocytes # 0.9 K/mcL (0.0-1.3); Monocytes % 8.3 %; Neutrophils # 9.3 K/mcL (1.6-8.9); Platelet Count 171 K/mcL (140-400); Red Blood Count 2.85 M/mcL (4.19-5.50); Red Cell Distribution Width 16.7 % (11.5-14.5); Segmented Neutrophils % 88.6 %; White Blood Count 10.4 K/mcL (4.3-11.1)
[2020-08-27 04:29] LABS: INR 1.1; Prothrombin Time 13.2 Seconds (9.4-12.1)
[2020-08-27 04:46] LABS: Albumin 3.8 g/dL (3.5-5.7); Bilirubin,Total 0.8 mg/dL (0.3-1.0); Calcium 8.4 mg/dL (8.6-10.3); Globulin 3.8 g/dL (2.4-3.5); Magnesium 3.5 mg/dL (1.6-2.6); Phosphorous 9.1 mg/dL (2.7-4.5); Potassium 3.9 mEq/L (3.5-5.1); Total Protein 7.6 g/dL (6.4-8.9)
[2020-08-27] MEDS: Doxycycline 100 MG in 0.9 % Sodium Chloride Mini Bag 100 ML IVPB SCH (05:13)
[2020-08-27] MEDS: Chlorhexidine Rinse 15 ML MOUTHWASH MM SCH (08:18)
[2020-08-27] MEDS: Furosemide 40 MG/4 ML VIAL IVP SCH (08:18)
[2020-08-27] MEDS ORDERED: *HR* Rivaroxaban 15 MG TABLET PO SCH (09:00)
[2020-08-27] MEDS ORDERED: *HR* Metoprolol 5 MG/5 ML VIAL IVP ONE ×2 (10:27→10:29)
[2020-08-27] MEDS ORDERED: Insulin LISPRO 300 UNITS/3 ML VIAL SUBQ SCH ×2 (16:30→21:00)
[2020-08-27] MEDS ORDERED: Dextrose Gel 15 GM/37.5 ML TUBE PO PRN ×2 (17:43)
[2020-08-27] MEDS ORDERED: Ondansetron 4 MG/2 ML VIAL IVP PRN (17:43)
[2020-08-27] MEDS ORDERED: D5% in Water 1,000 ML IVC PRN (17:43)
[2020-08-27] MEDS ORDERED: *HR* Dextrose 50 % in Water (Vial) 50 ML VIAL IVP PRN (17:43)
[2020-08-27] MEDS: Mirtazapine 15 MG TABLET PO SCH (19:54)
[2020-08-27] MEDS: Doxycycline 100 MG CAPSULE PO SCH (19:54)
[2020-08-27] MEDS ORDERED: Doxycycline 100 MG CAPSULE PO SCH (21:00)
[2020-08-28 01:01] LABS: Basophils % 0.3 %; Eosinophils # 0.2 K/mcL (0.0-0.6); Eosinophils % 1.6 %; Hematocrit 27.2 % (37.5-50.1); Hemoglobin 8.1 g/dL (12.9-16.9); Lymphocytes # 0.4 K/mcL (0.6-4.6); Lymphocytes % 3.7 %; Mean Corpuscular HGB Conc 29.8 g/dL (31.6-35.5); Mean Corpuscular Volume 97.5 fL (83.0-100.0); Mean Platelet Volume 10.2 fL (9.4-12.4); Monocytes # 0.8 K/mcL (0.0-1.3); Monocytes % 7.1 %; Neutrophils # 9.3 K/mcL (1.6-8.9); Nucleated Red Blood Cells 0.6 /100 WBC (0); Platelet Count 157 K/mcL (140-400); Red Blood Count 2.79 M/mcL (4.19-5.50); Red Cell Distribution Width 16.5 % (11.5-14.5); Segmented Neutrophils % 86.3 %; White Blood Count 10.8 K/mcL (4.3-11.1)
[2020-08-28] MEDS: Insulin LISPRO 300 UNITS/3 ML VIAL SUBQ SCH ×4 (07:32→20:56)
[2020-08-28] MEDS: Doxycycline 100 MG CAPSULE PO SCH ×2 (07:56→20:05)
[2020-08-28] MEDS ORDERED: *HR* Rivaroxaban 15 MG TABLET PO SCH (09:00)
[2020-08-28] MEDS: 0.9 % Sodium Chloride 1,000 ML IVC SCH ×3 (09:09→22:15)
[2020-08-28 09:40] LABS: Calcium 8.3 mg/dL (8.6-10.3); Magnesium 3.3 mg/dL (1.6-2.6); Potassium 3.8 mEq/L (3.5-5.1)
[2020-08-28] MEDS: Apixaban 5 MG TABLET PO SCH (20:05)
[2020-08-28] MEDS: Mirtazapine 15 MG TABLET PO SCH (20:05)
[2020-08-29 06:06] LABS: Basophils % 0.3 %; Eosinophils # 0.9 K/mcL (0.0-0.6); Eosinophils % 8.6 %; Hematocrit 27.3 % (37.5-50.1); Hemoglobin 8.2 g/dL (12.9-16.9); Immature Granulocytes % 0.3 % (0-4); Lymphocytes # 0.6 K/mcL (0.6-4.6); Lymphocytes % 5.9 %; Mean Corpuscular Hemoglobin 29.3 pg (28.0-33.3); Mean Corpuscular Volume 97.5 fL (83.0-100.0); Mean Platelet Volume 9.9 fL (9.4-12.4); Monocytes # 0.8 K/mcL (0.0-1.3); Monocytes % 7.7 %; Neutrophils # 7.7 K/mcL (1.6-8.9); Nucleated Red Blood Cells 0.4 /100 WBC (0); Platelet Count 158 K/mcL (140-400); Red Cell Distribution Width 16.1 % (11.5-14.5); Segmented Neutrophils % 77.2 %; White Blood Count 9.9 K/mcL (4.3-11.1)
[2020-08-29 06:27] LABS: Calcium 8.5 mg/dL (8.6-10.3); Potassium 3.2 mEq/L (3.5-5.1)
[2020-08-29] MEDS: Insulin LISPRO 300 UNITS/3 ML VIAL SUBQ SCH ×4 (08:22→20:39)
[2020-08-29] MEDS: Doxycycline 100 MG CAPSULE PO SCH ×2 (09:24→19:41)
[2020-08-29] MEDS: Apixaban 5 MG TABLET PO SCH ×2 (09:25→19:42)
[2020-08-29] MEDS ORDERED: Scopolamine Patch 1.5 MG PATCH.TD72 TD SCH (11:30)
[2020-08-29] MEDS: Mirtazapine 15 MG TABLET PO SCH (19:41)
[2020-08-30 00:58] LABS: Basophils % 0.2 %; Eosinophils # 0.7 K/mcL (0.0-0.6); Eosinophils % 8.9 %; Hematocrit 25.8 % (37.5-50.1); Hemoglobin 7.9 g/dL (12.9-16.9); Immature Granulocytes % 0.2 % (0-4); Lymphocytes # 0.5 K/mcL (0.6-4.6); Lymphocytes % 6.4 %; Mean Corpuscular HGB Conc 30.6 g/dL (31.6-35.5); Mean Corpuscular Hemoglobin 29.5 pg (28.0-33.3); Mean Corpuscular Volume 96.3 fL (83.0-100.0); Mean Platelet Volume 9.6 fL (9.4-12.4); Monocytes # 0.9 K/mcL (0.0-1.3); Monocytes % 10.5 %; Platelet Count 157 K/mcL (140-400); Red Blood Count 2.68 M/mcL (4.19-5.50); Red Cell Distribution Width 16.1 % (11.5-14.5); Segmented Neutrophils % 73.8 %; White Blood Count 8.1 K/mcL (4.3-11.1)
[2020-08-30 01:16] LABS: Calcium 8.1 mg/dL (8.6-10.3); Potassium 3.2 mEq/L (3.5-5.1)
[2020-08-30] MEDS ORDERED: Potassium Chloride Elixir 20 MEQ/15 ML UDC PO ONE (07:24)
[2020-08-30] MEDS: Insulin LISPRO 300 UNITS/3 ML VIAL SUBQ SCH ×2 (07:50→12:19)
[2020-08-30] MEDS: Doxycycline 100 MG CAPSULE PO SCH (07:59)
[2020-08-30] MEDS: Apixaban 5 MG TABLET PO SCH (07:59)
[2020-08-30 11:41] VITALS: BP 138/72
== END 2020-08-30 13:20 | disposition home health service (06) | DRG 811 ==
LOC: EMEROOARM 20:08 → 2ANU 20:08 → SUATTDRO 08-23 00:53 → ICNU 08-24 20:26 → 2NNU 08-27 19:27
PROVIDERS: ADMIT Student in an Organized Health Care Education/Training Program; ATTEND Internal Medicine
PROC: ENDOEBX (2020-08-24 17:30)